=== PATIENT | male | born 1970 | race Caucasian/White ===

== ENCOUNTER 2018-05-24 21:14 | Emergency (ER) | payer SELFPAY ==
[~2018-05-24] VITALS: Ht 188 cm; Wt 104.3 kg
--- NOTE | 2018-05-24 21:40 | ED Integumentary General ---
General Stated Complaint: SORE ON LEFT ARM Source: patient Exam Limitations: no limitations History of Present Illness Date Seen by Provider: May 24, 2018 Time Seen by Provider: 21:38 Initial Comments To ER with reports of a painful bump to the outer upper left arm. he's had a tender lump year for many years, about 3 days ago it became red and painful. He was seen at [facility] and was given a prescription for Bactrim. Despite that the redness and size of this area has become larger. No fevers or chills Timing/Duration: getting worse Severity: moderate Location: extremities Possible Cause: no cause identified Associated Symptoms: denies symptoms Allergies and Home Medications Allergies Coded Allergies: No Known Drug Allergies (Unverified , 05/24/18) Patient Home Medication List Home Medication List Reviewed: Yes Review of Systems Review of Systems Constitutional: see HPI; No chills, No fever EENTM: see HPI Respiratory: no symptoms reported Cardiovascular: no symptoms reported Genitourinary: no symptoms reported Musculoskeletal: no symptoms reported Skin: see HPI Psychiatric/Neurological: No Symptoms Reported Endocrine: No Symptoms Reported Past Bmelwcv-Xiulim-Qdrxtd Hx Patient Social History Recent Foreign Travel: No Contact w/Someone Who Travel: No Physical Exam Vital Signs Vital Signs - First Documented 05/24/18 21:28 Temp 98.0 Pulse 85 Resp 16 B/P (MAP) 161/92 (115) Capillary Refill : General Appearance: WD/WN, no apparent distress Respiratory: no respiratory distress, no accessory muscle use Neurologic/Psychiatric: alert, normal mood/affect, oriented x 3 Skin: normal color, warm/dry Skin Problem Location: upper extremities Skin Problem Character: abscess, other (there is a 3 cm erythematous tender lesion to the left upper outer arm which is fluctuant in the center) Procedures/Interventions I&D : Blade Size: 11 Packing/Drain: Idoform 03/19 Progress Overlying skin was anesthetized with 1 mL of 2% lidocaine without epinephrine. Incision made with 11 blade scalpel. Large amount of occurred like sebaceous material expressed, foul-smelling. Cultures collected and sent to lab. Cavity was flushed with hydrogen peroxide, packed with about 1 foot of quarter inch iodoform. Progress/Results/Core Measures Results/Orders My Orders Orders - CHERIE NASSAR APRN Lidocaine 1% Inj 20 Ml (Xylocaine 1% Inj (05/24/18 21:45) Wound Culture (05/24/18 21:36) Rx-Hydrocodone/Apap 5-325 Mg (Rx-Vicodin (05/24/18 21:45) Medications Given in ED Current Medications Medications Dose Ordered Sig/Vibha Route Start Time Stop Time Status Last Admin Dose Admin Acetaminophen/ Hydrocodone Bitart 1 ea Q4H PRN PO 05/24/18 21:45 05/24/18 21:41 1 EA Lidocaine HCl 1 ml ONCE ONCE INJ 05/24/18 21:45 05/24/18 21:46 DC 05/24/18 21:41 1 ML Vital Signs/I&O 05/24/18 21:28 Temp 98.0 Pulse 85 Resp 16 B/P (MAP) 161/92 (115) Departure Impression Primary Impression: Inflamed sebaceous cyst Disposition: HOME, SELF-CARE Condition: Stable Departure-Patient Inst. Decision time for Depature: 21:39 Referrals: NO,LOCAL PHYSICIAN (PCP) Primary Care Physician DON MARY DO RENAY MCFARLANE DO Patient Instructions: SEBACEOUS CYST-I&D Add. Discharge Instructions: 1. You may shower allowing water run over this 2. Continue the Bactrim antibiotic 3. Return to ER for any concerns 4. Follow-up with a surgeon to see if excision of this sebaceous cyst sac is warranted. Work/School Note: Work Release Form Date Seen in the Emergency Department: May 24, 2018 Return to Work: May 26, 2018 CHERIE NASSAR APRN May 24, 2018 21:40
[2018-05-24] MEDS ORDERED: RX-HYDROCODONE/APAP 5/325 MG #4 TAB PK PO PRN (21:45)
[2018-05-24] MEDS ORDERED: LIDOCAINE 1% INJ 20 ML 20 ML VIAL INJ ONE (21:45)
--- NOTE | 2018-05-24 21:58 | NUR ---
CULTURE OF LEFT ARM ABSCESS PER HUGO UMANZOR.
[2018-05-24 22:18] VITALS: BP 157/89
== END 2018-05-24 22:20 | disposition home or self-care (01) ==
LOC: ER 21:16
DX: L72.3 Sebaceous cyst (principal)
CPT/HCPCS: 87070; 87205

== ENCOUNTER 2018-05-26 18:44 | Emergency (ER) | payer SELFPAY ==
[~2018-05-26] VITALS: Ht 188 cm; Wt 104.3 kg
--- NOTE | 2018-05-26 19:54 | ED Suture Removal/Wound Check ---
Suture/Wound Re-check General Appearance: WD/WN, no apparent distress Neuro/Tendon: normal sensation, normal motor functions, responds to pain Skin Exam: normal color, warm/dry, other (There is a 3-4 mm round skin incision on the left upper extremity that is packed with iodoform tape. No purulent discharge.) Comments Replace the iodoform gauze after flushing with 100 cc of sterile saline. About half as much gauze back in. Physical Exam Vital Signs Vital Signs - First Documented 05/26/18 19:06 Pulse 89 Resp 16 B/P (MAP) 167/96 Pulse Ox 96 Capillary Refill : General Appearance: WD/WN, no apparent distress Neck: full range of motion, supple Skin: other (Small surgical wound in 3-4 mm diameter on the posterior lateral overlying the triceps upper extremity. Has iodoform gauze and no purulence.) Departure Impression Primary Impression: Abscess Additional Impression: Encounter for wound re-check Disposition: 01 HOME, SELF-CARE Condition: Stable Departure-Patient Inst. Decision time for Depature: 19:53 Referrals: NO,LOCAL PHYSICIAN (PCP/Family) Primary Care Physician Patient Instructions: Wound Incision and Drainage (DC) Add. Discharge Instructions: Keep the wound clean with regular soap and water. Remove the tape and about 1-2 days. Change clean and dry gauze dressing at least daily or as it becomes soiled. Tylenol and/or ibuprofen For pain. Hot compresses can be helpful. Continue to take the antibiotics. If it becomes reinfected, swollen or you start to have fevers or other worrisome symptoms return to the ER. All discharge instructions reviewed with patient and/or family. Voiced understanding. JUAN R SERRA May 26, 2018 19:54
[2018-05-26 20:04] VITALS: BP 167/96
== END 2018-05-26 20:04 | disposition home or self-care (01) ==
LOC: EDUNIT# 18:44 → ER 18:45
DX: L02.414 Cutaneous abscess of left upper limb (principal)
CPT/HCPCS: 99282

== ENCOUNTER 2018-09-26 18:54 | Emergency (ER) | payer OTHER ==
[~2018-09-26] VITALS: Ht 188 cm; Wt 99.8 kg
--- NOTE | 2018-09-26 19:07 | ED Dyspnea ---
General Stated Complaint: SOA Source of Information: Patient, Family Exam Limitations: No Limitations History of Present Illness Date Seen by Provider: Sep 26, 2018 Time Seen by Provider: 19:04 Initial Comments To ER per private vehicle from home with reports of dyspnea. This is been ongoing for about 3 months. Significantly worse than usual to the point that he felt he should come to the emergency room beginning today. No cough. No fevers or chills. 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 He has been seen by his primary care provider Dr. Hilton for this and there is suspicion of emphysema, has CT chest and palmar function test scheduled. He did have a pulmonary infection as a child at the age of 21 treated at [facility] and states "they told me I had the lungs of a 72-year-old". He denies any cough. Denies any swelling in his feet. Denies chest pain. States that he is anxious about this but otherwise is not an anxious person. also states that he urinates quite frequently and would like his prostate checked. Patient states this is because he drinks so much water trying to stay hydrated. Timing/Duration: 1 Week Severity: Moderate Activities at Onset: None Prior Episodes/Possible Cause: No Prior Episodes Allergies and Home Medications Allergies Coded Allergies: No Known Drug Allergies (Unverified , 05/24/18) Home Medications Albuterol Sulfate 1 Puff Puff, 2 PUFF IH Q4H PRN for SHORTNESS OF BREATH 1 PUFF = 90 MCG Prescribed by: CHERIE NASSAR on 09/26/18 2100 Patient Home Medication List Home Medication List Reviewed: Yes Review of Systems Review of Systems Constitutional: see HPI; No chills, No fever EENTM: see HPI Respiratory: see HPI; No cough, No hemoptysis, No orthopnea; short of breath Cardiovascular: see HPI; No chest pain Genitourinary: no symptoms reported Musculoskeletal: no symptoms reported Skin: no symptoms reported Psychiatric/Neurological: No Symptoms Reported Endocrine: No Symptoms Reported Past Huslvun-Wbpkif-Jzylnl Hx Patient Social History Type Used: Cigarettes Recent Foreign Travel: No Contact w/Someone Who Travel: No Recent Hopitalizations: No Seasonal Allergies Seasonal Allergies: No Past Medical History 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 oz. 104.821163mf; 28.12 BMI Method:Stated General Appearance: No Apparent Distress, WD/WN, Anxious, Other (no distress. Speaks in full sentences. He is tachypneic on arrival but on auscultation he has good air movement without wheezing and oxygen saturation is 100%. Offered him something for anxiety but he declined.) Neck: Full Range of Motion, Normal Inspection Respiratory: Lungs Clear, Normal Breath Sounds, No Accessory Muscle Use, No Respiratory Distress Cardiovascular: Regular Rate, Rhythm, Normal Peripheral Pulses Gastrointestinal: Normal Bowel Sounds, Non Tender, Soft Extremity: Normal Capillary Refill, No Pedal Edema Neurologic/Psychiatric: Alert, Oriented x3 Skin: Normal Color, Warm/Dry Progress/Results/Core Measures Results/Orders Lab Results Laboratory Tests Test 09/26/18 19:00 09/26/18 19:08 Range/Units White Blood Count 8.9 4.3-11.0 10^3/uL Red Blood Count 5.30 4.35-5.85 10^6/uL Hemoglobin 15.5 13.3-17.7 G/DL Hematocrit 46 40-54 % Mean Corpuscular Volume 86 80-99 FL Mean Corpuscular Hemoglobin 29 25-34 PG Mean Corpuscular Hemoglobin Concent 34 32-36 G/DL Red Cell Distribution Width 13.4 10.0-14.5 % Platelet Count 250 130-400 10^3/uL Mean Platelet Volume 9.8 7.4-10.4 FL Neutrophils (%) (Auto) 60 42-75 % Lymphocytes (%) (Auto) 27 12-44 % Monocytes (%) (Auto) 12 0-12 % Eosinophils (%) (Auto) 2 0-10 % Basophils (%) (Auto) 0 0-10 % Neutrophils # (Auto) 5.3 1.8-7.8 X 10^3 Lymphocytes # (Auto) 2.4 1.0-4.0 X 10^3 Monocytes # (Auto) 1.0 0.0-1.0 X 10^3 Eosinophils # (Auto) 0.2 0.0-0.3 10^3/uL Basophils # (Auto) 0.0 0.0-0.1 10^3/uL D-Dimer < 0.27 0.00-0.49 UG/ML Sodium Level 142 135-145 MMOL/L Potassium Level 3.6 3.6-5.0 MMOL/L Chloride Level 97 L 98-107 MMOL/L Carbon Dioxide Level 25 21-32 MMOL/L Anion Gap 20 H 5-14 MMOL/L Blood Urea Nitrogen 8 7-18 MG/DL Creatinine 0.79 0.60-1.30 MG/DL Estimat Glomerular Filtration Rate > 60 BUN/Creatinine Ratio 10 Glucose Level 81 70-105 MG/DL Calcium Level 8.0 L 8.5-10.1 MG/DL Corrected Calcium 7.8 L 8.5-10.1 MG/DL Magnesium Level 2.6 H 1.8-2.4 MG/DL Total Bilirubin 0.4 0.1-1.0 MG/DL Aspartate Amino Transf (AST/SGOT) 19 5-34 U/L Alanine Aminotransferase (ALT/SGPT) 23 0-55 U/L Alkaline Phosphatase 58 40-136 U/L Troponin I < 0.028 <0.028 NG/ML B-Type Natriuretic Peptide < 10.0 <100.0 PG/ML Total Protein 6.7 6.4-8.2 GM/DL Albumin 4.3 3.2-4.5 GM/DL Urine Color YELLOW Urine Clarity CLEAR Urine pH 6 5-9 Urine Specific Garita 1.010 L 1.016-1.022 Urine Protein NEGATIVE NEGATIVE Urine Glucose (UA) NEGATIVE NEGATIVE Urine Ketones NEGATIVE NEGATIVE Urine Nitrite NEGATIVE NEGATIVE Urine Bilirubin NEGATIVE NEGATIVE Urine Urobilinogen NORMAL NORMAL MG/DL Urine Leukocyte Esterase NEGATIVE NEGATIVE Urine RBC (Auto) NEGATIVE NEGATIVE Urine RBC NONE /HPF Urine WBC NONE /HPF Urine Squamous Epithelial Cells RARE /HPF Urine Crystals NONE /LPF Urine Bacteria NEGATIVE /HPF Urine Casts NONE /LPF Urine Mucus NEGATIVE /LPF Urine Culture Indicated NO My Orders Orders - CHERIE NASSAR APRN Cbc With Automated Diff (09/26/18 19:02) Comprehensive Metabolic Panel (09/26/18 19:02) BNP (7/14/19 19:02) Troponin I (09/26/18 19:02) Fibrin Degradation Products (09/26/18 19:02) Ekg Tracing (09/26/18 19:02) Magnesium (09/26/18 19:02) Psa Screen (09/26/18 19:02) Ed Iv/Invasive Line Start (09/26/18 19:02) Chest 1 View, Ap/Pa Only (09/26/18 19:02) Ua Culture If Indicated (09/26/18 19:02) Ct Chest W (09/26/18 19:25) Alprazolam Tablet (Xanax Tablet) (09/26/18 19:30) Iohexol Injection (Omnipaque 350 Mg/Ml 1 (09/26/18 19:45) Received Contrast (Hold Metformin- Contr (09/26/18 19:45) Ns (Ivpb) (Sodium Chloride 0.9% Ivpb Bag (09/26/18 19:45) Magnesium 1 Gm/100 Ml Ivpb (Magnesium Summers (09/26/18 19:45) Albuterol/Ipra Inhalation Soln (Duoneb I (09/26/18 20:30) Svn Small Volume Nebulizer (09/26/18 20:21) Ns Iv 500 Ml (Sodium Chloride 0.9%) (09/26/18 21:00) Medications Given in ED Current Medications Medications Dose Ordered Sig/Vibha Route Start Time Stop Time Status Last Admin Dose Admin Albuterol/ Ipratropium 3 ml ONCE ONCE INH 09/26/18 20:30 09/26/18 20:31 DC 09/26/18 20:44 3 ML Alprazolam 0.5 mg ONCE ONCE PO 09/26/18 19:30 09/26/18 19:31 DC 09/26/18 19:38 0.5 MG Iohexol 75 ml ONCE ONCE IV 09/26/18 19:45 09/26/18 19:46 DC 09/26/18 19:53 75 ML Sodium Chloride 100 ml ONCE ONCE IV 09/26/18 19:45 09/26/18 19:46 DC 09/26/18 19:53 80 ML Vital Signs/I&O 09/26/18 18:56 Temp 97.6 Pulse 81 Resp 18 B/P (MAP) 169/111 (130) Pulse Ox 99 O2 Delivery Room Air Diagnostic Imaging Diagonstic Imaging: Xray Plain Films/CT/US/NM/MRI: chest Comments NAME: NEIL LEMUS [facility] REC#: [id number] PT STATUS: REG ER : 1970 PHYSICIAN: CHERIE NASSAR APRN ADMIT DATE: 09/26/18/ER Draft Date of Exam:09/26/18 CT CHEST W INDICATION: Intermittent, shortness of air for approximately 3 weeks. Increased difficulty breathing this morning. Fever, chills and cough. EXAMINATION: CT chest with contrast, 09/26/2018. COMPARISON: None. FINDINGS: Mediastinal structures are unremarkable. No adenopathy. Major vessels are grossly unremarkable on this non-CTA examination. No pericardial or pleural effusions are seen. There is diffuse emphysematous change throughout the lungs, especially towards the upper lobes. Linear atelectasis is seen at the left lung base. No mass is appreciated. The visualized upper abdominal structure demonstrates atherosclerotic disease with evidence of previous cholecystectomy and fatty infiltration throughout the liver. The osseous structures are unremarkable for an acute process. IMPRESSION: 1. No acute process within the chest with diffuse emphysematous changes noted. Other incidental findings as above. 2. Not mentioned in the body of the report, there is a rounded subcutaneous lesion in the anterior chest just to the left of midline which measures 18 mm in size. It appears subcutaneous and is well-circumscribed. Hounsfield units consistent with fluid and fat possibly a sebaceous cyst or other benign lesion but clinical followup is recommended. Dictated on workstation # [id number] Dict: 09/26/182014 Trans: 09/26/182038 [facility] [id number] Interpreted by: POLA RYAN MD Electronically signed by: Departure Communication (Admissions) 2042-Spoke with Dr. Jaime, we'll admit observation status, replace magnesium and sodium, fluid restriction overnight. Recheck in the morning. 2054-notify Dr. Jaime of labs being different than initially reported. We will discharge the patient home for outpatient follow-up with pulmonology. Family Conversation 2051-discussed with the lab regarding the low magnesium. They have rerun this on a different machine. Initially was reported as 0.7. They reran aside different machine and is now 2.1. I requested they rerun the sodium is well and it's now in the 140s. It was initially reported as 126. NAME: NEIL LEMUS [facility] REC#: [id number] PT STATUS: REG ER : 1970 PHYSICIAN: CHERIE NASSAR [employer] ADMIT DATE: 09/26/18/ER Draft Date of Exam:09/26/18 CT CHEST W INDICATION: Intermittent, shortness of air for approximately 3 weeks. Increased difficulty breathing this morning. Fever, chills and cough. EXAMINATION: CT chest with contrast, 09/26/2018. COMPARISON: None. FINDINGS: Mediastinal structures are unremarkable. No adenopathy. Major vessels are grossly unremarkable on this non-CTA examination. No pericardial or pleural effusions are seen. There is diffuse emphysematous change throughout the lungs, especially towards the upper lobes. Linear atelectasis is seen at the left lung base. No mass is appreciated. The visualized upper abdominal structure demonstrates atherosclerotic disease with evidence of previous cholecystectomy and fatty infiltration throughout the liver. The osseous structures are unremarkable for an acute process. IMPRESSION: 1. No acute process within the chest with diffuse emphysematous changes noted. Other incidental findings as above. 2. Not mentioned in the body of the report, there is a rounded subcutaneous lesion in the anterior chest just to the left of midline which measures 18 mm in size. It appears subcutaneous and is well-circumscribed. Hounsfield units consistent with fluid and fat possibly a sebaceous cyst or other benign lesion but clinical followup is recommended. Dictated on workstation # [id number] Dict: 09/26/182014 Trans: 09/26/182038 [facility] [phone] Interpreted by: POLA RYAN MD Electronically signed by: Impression Primary Impression: Dyspnea Qualified Codes: R06.00 - Dyspnea, unspecified Additional Impression: Emphysema of lung Qualified Codes: J43.9 - Emphysema, unspecified Disposition: 01 HOME, SELF-CARE Condition: Stable Departure-Patient Inst. Decision time for Depature: 20:58 Referrals: ABUNDIO LYNN JOHN M MD (PCP/Family) Primary Care Physician Patient Instructions: COPD Including Emphysema (DC) Add. Discharge Instructions: I have faxed your records to Dr. Hilton. Follow-up with him and the football scout Dr. Lynn. Return to the emergency room for any concerns. Your electrolytes are normal and you do not need to restrict your fluids. Scripts Albuterol Sulfate (PROAIR HFA) 1 Puff Puff 2 PUFF IH Q4H PRN for SHORTNESS OF BREATH, #1 PUFF 1 PUFF = 90 MCG Prov: CHERIE NASSAR APRN 09/26/18 Copy Copies To 1: ODILIA HILTON MD, PETER J APRN Sep 26, 2018 19:07
[2018-09-26 19:10] LABS: BASOPHILS % (AUTO) 0 % (0-10); EOSINOPHILS # (AUTO) 0.2 10^3/uL (0.0-0.3); EOSINOPHILS % (AUTO) 2 % (0-10); HEMATOCRIT 46 % (40-54); HEMOGLOBIN 15.5 G/DL (13.3-17.7); LYMPHOCYTES # (AUTO) 2.4 X 10^3 (1.0-4.0); LYMPHOCYTES % (AUTO) 27 % (12-44); MEAN CORPUSCULAR HEMOGLOBIN 29 PG (25-34); MEAN CORPUSCULAR HGB CONC 34 G/DL (32-36); MEAN CORPUSCULAR VOLUME 86 FL (80-99); MEAN PLATELET VOLUME 9.8 FL (7.4-10.4); MONOCYTES % (AUTO) 12 % (0-12); NEUTROPHILS # (AUTO) 5.3 X 10^3 (1.8-7.8); NEUTROPHILS % (AUTO) 60 % (42-75); PLATELET COUNT 250 10^3/uL (130-400); RED CELL DISTRIBUTION WIDTH 13.4 % (10.0-14.5); WHITE BLOOD COUNT 8.9 10^3/uL (4.3-11.0)
[2018-09-26 19:12] LABS: BILIRUBIN,URINE NEGATIVE (NEGATIVE); CLARITY,URINE CLEAR; COLOR,URINE YELLOW; GLUCOSE, URINE (UA) NEGATIVE (NEGATIVE); KETONES,URINE NEGATIVE (NEGATIVE); LEUKOCYTE ESTERASE ,URINE NEGATIVE (NEGATIVE); NITRITE,URINE NEGATIVE (NEGATIVE); PH,URINE 6 (5-9); PROTEIN,URINE NEGATIVE (NEGATIVE); UROBILINOGEN,URINE NORMAL (NORMAL)
[2018-09-26 19:19] LABS: BACTERIA,URINE NEGATIVE /HPF; SQUAMOUS EPITHELIAL CELL,UR RARE /HPF
[2018-09-26 19:28] LABS: CARBON DIOXIDE 25 MMOL/L (21-32)
[2018-09-26] MEDS ORDERED: ALPRAZolam 0.25 MG (XANAX) TAB PO ONE (19:30)
--- NOTE | 2018-09-26 19:31 | Diagnostic Imaging Report ---
INDICATION: Short of air. Worsening overall over the last several days. EXAMINATION: Chest dated 09/26/2018 FINDINGS: Mild prominence of the perihilar regions noted perhaps due to mild pulmonary vascular congestion. Mild adjacent bibasilar atelectasis. No infiltrates. No effusions or pneumothorax. IMPRESSION: 1. Possible mild pulmonary vascular congestion 2. Right base atelectasis. Dictated by: Dictated on workstation # [id number]
[2018-09-26] MEDS ORDERED: IOHEXOL 350 MG/ML 100 ML (OMNIPAQUE 350) VIAL IV ONE (19:45)
[2018-09-26] MEDS ORDERED: NS 100 ML (IVPB) BAG IV ONE (19:45)
[2018-09-26] MEDS ORDERED: HOLD METFORMIN - RECEIVED CONTRAST 20 ML VIAL IV SCH (19:45)
[2018-09-26] MEDS: MAGNESIUM 1 GM/100 ML IVPB 100 ML IV SCH ×2 (20:10→20:50)
[2018-09-26] MEDS ORDERED: RT-ALBUTEROL/IPRATROPIUM 3 ML (DUONEB) VIAL INH ONE (20:30)
--- NOTE | 2018-09-26 20:39 | Diagnostic Imaging Report ---
INDICATION: Intermittent, shortness of air for approximately 3 weeks. Increased difficulty breathing this morning. Fever, chills and cough. EXAMINATION: CT chest with contrast, 09/26/2018. COMPARISON: None. FINDINGS: Mediastinal structures are unremarkable. No adenopathy. Major vessels are grossly unremarkable on this non-CTA examination. No pericardial or pleural effusions are seen. There is diffuse emphysematous change throughout the lungs, especially towards the upper lobes. Linear atelectasis is seen at the left lung base. No mass is appreciated. The visualized upper abdominal structure demonstrates atherosclerotic disease with evidence of previous cholecystectomy and fatty infiltration throughout the liver. The osseous structures are unremarkable for an acute process. IMPRESSION: 1. No acute process within the chest with diffuse emphysematous changes noted. Other incidental findings as above. 2. Not mentioned in the body of the report, there is a rounded subcutaneous lesion in the anterior chest just to the left of midline which measures 18 mm in size. It appears subcutaneous and is well-circumscribed. Hounsfield units consistent with fluid and fat possibly a sebaceous cyst or other benign lesion but clinical followup is recommended. Dictated by: Dictated on workstation # [id number]
[2018-09-26 20:53] LABS: MAGNESIUM 2.6 MG/DL (1.8-2.4)
[2018-09-26] MEDS ORDERED: RT-ALBUINH IH (21:00)
[2018-09-26] MEDS ORDERED: NS IV 500 ML 500 ML IV SCH (21:00)
[2018-09-26 21:08] LABS: SODIUM 142 MMOL/L (135-145)
[2018-09-26 21:34] VITALS: BP 140/93
[2018-09-26 21:37] LABS: CHLORIDE 104 MMOL/L (98-107)
[2018-09-26 21:38] LABS: BILIRUBIN,TOTAL 0.5 MG/DL (0.1-1.0); BUN/CREATININE RATIO 9; CALCIUM 10.3 MG/DL (8.5-10.1); CREATININE SERUM 1.16 MG/DL (0.60-1.30); GFR ESTIMATED > 60; GLUCOSE 87 MG/DL (70-105)
[2018-09-26 21:39] LABS: ALANINE AMINOTRANSFERASE 26 U/L (0-55); ALBUMIN 4.6 GM/DL (3.2-4.5); ALKALINE PHOSPHATASE 66 U/L (40-136); TOTAL PROTEIN 7.6 GM/DL (6.4-8.2)
== END 2018-09-26 21:34 | disposition home or self-care (01) ==
LOC: EDUNIT# 18:54 → ER 18:55
DX: J43.9 Emphysema, unspecified (principal); Z90.49 Acquired absence of other specified parts of digestive tract
CPT/HCPCS: 36415; 71045; 71260; 80053; 81000; 83735; 83880; 84153; 84484; 85025; 85379; 93005; 96360

== ENCOUNTER → 2018-10-29 | Outpatient (CLI) | payer OTHER ==
[~2018-10-29] MED LIST: RT-ALBUINH IH; RT-ALBUTEROL SULF 2.5 MG/3 ML PRE-MIX VIAL INH ONE; RT-ALBUTEROL SULF 2.5 MG/3 ML PRE-MIX VIAL ONE
== END ==
LOC: RT 08:01
PROVIDERS: ATTEND Pediatrics
DX: R06.02 Shortness of breath (principal)
CPT/HCPCS: 94060; 94726; 94729

== ENCOUNTER 2019-03-23 10:04 | Outpatient (RCR) | payer OTHER | END 2019-03-23 11:18 | disposition home or self-care (01) | PROVIDERS: ATTEND Surgery | DX: Z02.71 Encounter for disability determination (principal); J43.9 Emphysema, unspecified; M54.9 Dorsalgia, unspecified; F32.9 Major depressive disorder, single episode, unspecified; Z87.891 Personal history of nicotine dependence ==

== ENCOUNTER → 2019-03-23 | Outpatient (CLI) | payer OTHER ==
[~2019-03-23] MED LIST changes: -RT-ALBUTEROL SULF 2.5 MG/3 ML PRE-MIX VIAL INH ONE; -RT-ALBUTEROL SULF 2.5 MG/3 ML PRE-MIX VIAL ONE
--- NOTE | 2019-03-23 11:53 | Diagnostic Imaging Report ---
INDICATION: Back pain. TIME OF EXAM: 11:28 a.m. COMPARISON: No prior studies are available for comparison. FINDINGS: Curvature and alignment are normal. Vertebral body heights are well maintained. There is degenerative disc disease with mild disc space narrowing and anterior osteophyte formation at the T12-L1 level. Lumbar discs show fairly normal heights. No fractures or subluxation is seen. There are some atherosclerotic calcifications in the abdominal aorta. IMPRESSION: T12-L1 degenerative disc disease. No acute bony abnormality is detected. Dictated by: Dictated on workstation # [id number]
== END ==
LOC: RAD 11:05
PROVIDERS: ATTEND Surgery
DX: Z02.71 Encounter for disability determination (principal); M51.35 Other intervertebral disc degeneration, thoracolumbar region
CPT/HCPCS: 72100

== ENCOUNTER → 2019-04-25 | Outpatient (CLI) | payer OTHER | LOC: RT 13:43 | PROVIDERS: ATTEND Family Medicine | DX: Z02.71 Encounter for disability determination (principal) | CPT/HCPCS: 94060 ==

== ENCOUNTER 2020-06-20 18:49 | Emergency (ER) | payer OTHER | END 2020-06-20 19:16 | disposition left against medical advice (07) | LOC: EDUNIT# 18:49 → ER 18:51 | DX: R06.02 Shortness of breath (principal) ==

== ENCOUNTER 2021-05-19 22:43 | Emergency (ER) | payer SELFPAY ==
[~2021-05-19] VITALS: Ht 188 cm; Wt 113.3 kg
[2021-05-19 22:50] VITALS: BP 149/88
--- NOTE | 2021-05-19 23:00 | ED Cough/URI ---
General Stated Complaint: DRAINAGE/COUGH Source: patient History of Present Illness Date Seen by Provider: May 19, 2021 Time Seen by Provider: 22:52 Initial Comments PT ARRIVES VIA POV FROM HOME C/O COUGH AND CONGESTION/NASAL DRAINAGE AND SINUS PRESSURE NO OTHER SYMPTOMS WAS TREATED FOR A SINUS INFECTION A COUPLE OF WEEKS AGO, SYMPTOMS HAVE NOT IMPROVED--TOOK AMOXIL--SEEN AT [facility] PT HAS FREQUENT SINUS INFECTIONS AND TAKES ZYRTEC AND FLONASE PT ALSO HAS COPD--USES INHALER AND/OR NEBULIZER PRN PT QUIT SMOKING IN 2019, BUT STILL SMOKES IN THE HOME SYMPTOMS ARE NO DIFFERENT ENMANUEL HAD A NEGATIVE HOME COVID-19 TEST TONDIPESH PT HAS HAD COVID-19 VACCINE X 2, NO BOOSTER, LAST ONE IN 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 PCP: [facility] Allergies and Home Medications Allergies Coded Allergies: No Known Drug Allergies (Unverified , 05/24/18) Patient Home Medication List Home Medication List Reviewed: Yes Albuterol Sulfate (Proair Hfa) 1 Puff Puff, 2 PUFF IH Q4H PRN for SHORTNESS OF BREATH Prescribed by: CHERIE NASSAR on 09/26/18 2100 Azelastine HCl (Azelastine HCl) 137 Mcg/0.137 Ml [place].pump, 137 MCG NS BID Prescribed by: MOISÉS USLLIVAN on 05/20/217 Cefuroxime Axetil (Cefuroxime) 500 Mg Tablet, 500 MG PO BID Prescribed by: MOISÉS SULLIVAN on 05/20/217 Methylprednisolone (Medrol) 4 Mg Tab.ds.pk, 4 MG PO UD Prescribed by: MOISÉS SULLIVAN on 05/20/217 Review of Systems Review of Systems Constitutional: no symptoms reported EENTM: see HPI, nose congestion; No throat pain Respiratory: cough; No short of breath Cardiovascular: no symptoms reported Gastrointestinal: no symptoms reported Genitourinary: no symptoms reported Musculoskeletal: no symptoms reported Skin: no symptoms reported Psychiatric/Neurological: No Symptoms Reported Hematologic/Lymphatic: No Symptoms Reported Immunological/Allergic: no symptoms reported Past Mrlvmcp-Trcucs-Xkqnki Hx Patient Social History Tobacco Use?: Yes Tobacco type used: Cigarettes Smoking Status: Former Smoker (1 PPD X 28 YEARS, QUIT 2019. STILL WITH SECOND HAND SMOKE) Seasonal Allergies Seasonal Allergies: No Past Medical History Surgeries: Yes (3 BRAIN TUMORS REMOVED CHILD) Appendectomy, Gallbladder Respiratory: Yes COPD Cardiac: No Neurological: No Genitourinary: No Gastrointestinal: No Musculoskeletal: No Endocrine: No HEENT: No Cancer: No Psychosocial: No Integumentary: Yes (STAPH ON LEFT LEG ) Blood Disorders: No Physical Exam Vital Signs - First Documented 05/19/21 22:50 Temp 36.9 Pulse 89 Resp 20 B/P (MAP) 149/88 (108) Pulse Ox 98 O2 Delivery Room Air Capillary Refill : Height: 6'2.00" Weight: 220lbs. oz. 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, no motor/sensory deficits, alert, normal mood/affect, oriented x 3 Skin: normal color, warm/dry Progress/Results/Core Measures Suspected Sepsis SIRS Temperature: Pulse: Respiratory Rate: Blood Pressure / Mean: Results/Orders Lab Results Laboratory Tests Test 05/19/21 22:55 Range/Units Influenza Type A (RT-PCR) Not Detected Not Detecte Influenza Type B (RT-PCR) Not Detected Not Detecte SARS-CoV-2 RNA (RT-PCR) Not Detected Not Detecte My Orders Orders - MOISÉS SULLIVAN DO Covid 19 Inhouse Test (05/19/21 22:53) Influenza A And B By Pcr (05/19/21 22:53) Isolation Central Supply Req (05/19/21 22:53) Vital Signs/I&O 05/19/21 22:50 Temp 36.9 Pulse 89 Resp 20 B/P (MAP) 149/88 (108) Pulse Ox 98 O2 Delivery Room Air Capillary Refill : Progress Note : Progress Note PLACED IN ISOLATION ROOM PPE WORN COVID AND FLU TESTING DONE Departure Impression Primary Impression: Upper respiratory infection Disposition: 01 HOME, SELF-CARE Condition: Stable Departure-Patient Inst. Decision time for Depature: 23:53 Referrals: NO,LOCAL PHYSICIAN (PCP/Family) Primary Care Physician Patient Instructions: Upper Respiratory Infection ED Add. Discharge Instructions: CONTINUE FLONASE AND ZYRTEC OVER THE COUNTER MUCINEX DM FOR COUGH AND CONGESTION HUMIDIFY THE AIR IN YOUR HOME USE YOUR INHALER OR NEBULIZER PRESCRIBED FOLLOW UP WITH [facility] IN 1 WEEK IF NO BETTER Scripts Azelastine HCl (Azelastine HCl) 137 Mcg/0.137 Ml [place].pump 137 MCG NS BID, #1 EA Prov: MOISÉS SULLIVAN DO 05/20/21 Methylprednisolone (Medrol) 4 Mg Tab.ds.pk 4 MG PO UD for 6 Days, #21 PKG PER DOSE PACK INSTRUCTIONS Prov: MOISSÉ SULLIVAN DO 05/20/21 Cefuroxime Axetil (Cefuroxime) 500 Mg Tablet 500 MG PO BID, #30 TAB Prov: MOISÉS SULLIVAN DO 05/20/21 MOISÉS SULLIVAN DO May 19, 2021 23:00
[2021-05-20] MEDS ORDERED: CEFU500T63 PO (00:08)
[2021-05-20] MEDS ORDERED: METH4TAB PO (00:08)
[2021-05-20] MEDS ORDERED: AZEL137S11 NS (00:08)
== END 2021-05-20 00:17 | disposition home or self-care (01) ==
LOC: EDUNIT# 22:43 → ER 22:45
DX: J06.9 Acute upper respiratory infection, unspecified (principal); Z20.822 Contact with and (suspected) exposure to COVID-19; Z87.891 Personal history of nicotine dependence
CPT/HCPCS: 87636; 99283

== ENCOUNTER 2022-04-11 02:25 | Emergency (ER) | payer OTHER ==
[~2022-04-11] VITALS: Ht 188 cm; Wt 108.9 kg
[~2022-04-11 02:25] MED LIST changes: +ALBU8.5H6 IH; +AZEL137S11 NS; +CEFU500T63 PO; +METH4TAB PO; -RT-ALBUINH IH
--- NOTE | 2022-04-11 02:47 | ED Cough/URI ---
General Chief Complaint: Cough/Cold/Flu Symptoms Stated Complaint: CONGESTION/COUGH/SOA Nursing Triage Note: PT AMB TO RM 9 W C/O COUGH, CONGESTION, AND SOA X4-5 DAYS. PT A&OX4, NO RESP DISTRESS NOTED. Source: patient, old records History of Present Illness Date Seen by Provider: Apr 11, 2022 Time Seen by Provider: 02:30 Initial Comments PT ARRIVES VIA POV FROM HOME C/O NON-PRODUCTIVE COUGH, CHEST CONGESTION AND SHORTNESS OF BREATH FOR 4-5 DAYS NO FEVER AT ANY TIME NO HEADACHE OR BODY ACHES NO GI SYMPTOMS--HAS BEEN EATING AND DRINKING NORMALLY NO CHEST PAIN NO SWELLING IN FEET OR ANKLES OR PAIN IN CALVES PT HAS COPD AND USED ALBUTEROL NEBULIZER FOR THE FIRST TIME AROUND MIDNIGHT AND IT HELPED ALOT WITH HIS COUGH AND SHORTNESS OF BREATH--STATES HE HAS NOT USED HIS ALBUTEROL "FOR AWHILE NOW" HE HAS NOT TAKEN ANY COUGH/COLD MEDICATIONS AT ANY TIME HE HAS BEEN TAKING "LEFTOVER" AMOXIL FOR THE LAST 4-5 DAYS SYMPTOMS ARE NO DIFFERENT ENMANUEL HAS NOT SOUGHT CARE UNTIL TONDIPESH--STATES HE DID NOT HAVE TO WORK TODAY, AND TOLD HIM TO GO TO [facility], BUT HE DIDN'T. PT STATES HE TESTED + FOR COVID 02/21/22--NO TREATMENT. STATES HIS SYMPTOMS HAD BEEN GOING ON FOR MORE THAN 5 DAYS BEFORE HE SOUGHT CARE. NO PRESCRIPTIONS OR TREATMENT. THOSE SYMPTOMS RESOLVED AND HE WAS FEELING FINE UNTIL THIS WEEK. 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 PT IS A FORMER SMOKER, QUIT IN 2019. HE CHEWS TOBACCO. PCP: [facility] Allergies and Home Medications Allergies Coded Allergies: No Known Drug Allergies (Unverified , 05/24/18) Patient Home Medication List Home Medication List Reviewed: Yes Albuterol Sulfate (Ventolin Hfa) 1 Puff Puff, 2 PUFF IH Q4H PRN for SHORTNESS OF BREATH Prescribed by: CHERIE NASSAR on 09/26/182099 Azelastine HCl (Azelastine HCl) 137 Mcg/0.137 Ml [place].pump, 137 MCG NS BID Prescribed by: MOISÉS SULLIVAN on 05/20/21 0008 Benzonatate (Tessalon Perles) 100 Mg Capsule, 200 MG PO TID Prescribed by: MOISÉS SULLIVAN on 1/27/23 0254 Cefuroxime Axetil (Cefuroxime) 500 Mg Tablet, 500 MG PO BID Prescribed by: MOISÉS SULLIVAN on 05/20/217 Doxycycline Hyclate (Doxycycline Hyclate) 100 Mg Tablet, 100 MG PO BID Prescribed by: MOISÉS SULLIVAN on 04/11/22 032 Guaifenesin/Dextromethorphan (Mucinex Dm ER 1,200-60 mg Tab) 1,200 Mg-60 Mg Tbmp.12hr, 1 EACH PO BID Prescribed by: MOISÉS SULLIVAN on 04/11/22253 Methylprednisolone (Medrol) 4 Mg Tab.ds.pk, 4 MG PO UD Prescribed by: MOISÉS SULLIVAN on 05/20/217 Methylprednisolone (Medrol) 4 Mg Tab.ds.pk, 4 MG PO UD Prescribed by: MOISÉS SULLIVAN on 04/11/22253 Review of Systems Review of Systems Constitutional: no symptoms reported; No chills, No diaphoresis, No dizziness, No fever EENTM: no symptoms reported; No nose congestion, No throat pain Respiratory: see HPI, cough; No orthopnea, No phlegm; short of breath; No wheezing Cardiovascular: no symptoms reported; No chest pain, No edema, No palpitations, No syncope Gastrointestinal: no symptoms reported Genitourinary: no symptoms reported Musculoskeletal: no symptoms reported Skin: no symptoms reported Psychiatric/Neurological: No Symptoms Reported Hematologic/Lymphatic: No Symptoms Reported Immunological/Allergic: no symptoms reported Past Twmbrfe-Hiulwg-Jlsuqy Hx Patient Social History Tobacco Use?: Yes Smoking Status: Former Smoker Smokeless Tobacco Frequency: Current Everyday User Use of E-Cig and/or Vaping dev: No Substance use?: No Alcohol Use?: Yes Alcohol Frequency: Rarely Immunizations Up To Date Influenza Vaccine Up-to-Date: No; Not Current First/Initial COVID19 Vaccinat: 11/03 Second COVID19 Vaccination Paco: 12/04 Third COVID19 Vaccination Date: NONE COVID19 Vaccine Can Cutter: RAINA X2 Seasonal Allergies Seasonal Allergies: No Past Medical History Surgery/Hospitalization HX: EMPHYSEMA, FORMER SMOKER X28 YRS QUIT IN 2019 Surgeries: Yes (3 BRAIN TUMORS REMOVED CHILD) Appendectomy, Gallbladder, Neurological Respiratory: Yes COPD Cardiac: No Neurological: Yes ("BRAIN TUMORS REMOVED CHILD") Genitourinary: No Gastrointestinal: No Musculoskeletal: No Endocrine: No HEENT: No Cancer: No Psychosocial: No Integumentary: Yes (STAPH ON LEFT LEG ) Blood Disorders: No Physical Exam Vital Signs - First Documented 04/11/22 02:28 Temp 36.7 Pulse 86 Resp 20 B/P (MAP) 155/79 (104) Pulse Ox 99 O2 Delivery Room Air Capillary Refill : Less Than 3 Seconds Height: 6'2.00" Weight: 220lbs. oz. 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, no motor/sensory deficits, alert, normal mood/affect, oriented x 3 Skin: normal color, warm/dry Progress/Results/Core Measures Suspected Sepsis SIRS Temperature: Pulse: 86 Respiratory Rate: 20 Blood Pressure 155 /79 Mean: 104 Results/Orders Lab Results Laboratory Tests Test 04/11/22 02:34 Range/Units Influenza Type A (RT-PCR) Not Detected Not Detecte Influenza Type B (RT-PCR) Not Detected Not Detecte SARS-CoV-2 RNA (RT-PCR) Not Detected Not Detecte My Orders Orders - MOISÉS SULLIVAN DO Covid 19 Inhouse Test (04/11/22 02:31) Influenza A And B By Pcr (04/11/22 02:31) Isolation Central Supply Req (04/11/22 02:31) Chest 1 View, Ap/Pa Only (04/11/22 02:32) Vital Signs/I&O 04/11/22 04/11/22 02:28 03:23 Temp 36.7 Pulse 86 90 Resp 20 20 B/P (MAP) 155/79 (104) 128/90 Pulse Ox 99 98 O2 Delivery Room Air Room Air Capillary Refill : Less Than 3 Seconds Blood Pressure Mean: 104 Progress Note : Progress Note PLACED IN ISOLATION ROOM FULL PPE WORN COVID AND FLU TESTING DONE O2 SAT 100% ON ROOM AIR OTHER VITALS STABLE NO FEVER NO COUGH OR DYSPNEA NOTED AT ANY TIME NO HYPOXIA AT ANY TIME NO SYMPTOMS OF ANY KIND DURING ER STAY REVIEWED PRIOR RECORDS, ALL ARE ER VISITS Diagnostic Imaging Comments CXR--NO ACUTE PROCESS, PENDING RADIOLOGIST REVIEW Reviewed: Reviewed by Me Departure Impression Primary Impression: Bronchitis Additional Impression: COPD (chronic obstructive pulmonary disease) Disposition: HOME, SELF-CARE Condition: Stable Departure-Patient Inst. Decision time for Depature: 03:22 Referrals: [facility] (PCP/Family) Primary Care Physician Patient Instructions: Acute Bronchitis, Adult (DC), Chronic Obstructive Pulmonary Disease (COPD) (DC) Add. Discharge Instructions: HOME, REST LOTS OF CLEAR LIQUIDS TYLENOL AND MOTRIN NEEDED FOR PAIN OR FEVER USE YOUR ALBUTEROL NEBULIZER EVERY 4 HOURS NEEDED FOLLOW UP WITH [facility] IN 3-4 DAYS IF NO BETTER, RETURN TO ER IF WORSE All discharge instructions reviewed with patient and/or family. Voiced understanding. Scripts Doxycycline Hyclate (Doxycycline Hyclate) 100 Mg Tablet 100 MG PO BID, #20 TAB 0 Refills Prov: MOISÉS SULLIVAN DO 04/11/22 Benzonatate (TESSALON PERLES) 100 Mg Capsule 200 MG PO TID, #50 CAP Prov: MOISÉS SULLIVAN DO 04/11/22 Guaifenesin/Dextromethorphan (Mucinex Dm ER 1,200-60 mg Tab) 1,200 Mg-60 Mg Tbmp.12hr 1 EACH PO BID, #20 EA Prov: MOISÉS SULLIVAN DO 04/11/22 Methylprednisolone (Medrol) 4 Mg Tab.ds.pk 4 MG PO UD for 6 Days, #21 PKG PER DOSE PACK INSTRUCTIONS Prov: MOISÉS SULLIVAN DO 04/11/22 MOISÉS SULLIVAN DO Apr 11, 2022 02:47
[2022-04-11] MEDS ORDERED: GUAI1TBM19 PO (02:54)
[2022-04-11] MEDS ORDERED: METH4TAB PO (02:54)
[2022-04-11] MEDS ORDERED: BENZ100C18 PO (02:54)
[2022-04-11] MEDS ORDERED: DOXY100T2 PO (03:22)
[2022-04-11 03:23] VITALS: BP 128/90
--- NOTE | 2022-04-11 04:58 | Diagnostic Imaging Report ---
Indication: Cough, congestion and shortness of breath x5 days Portable chest 2:34 AM Heart size and pulmonary vascularity are normal. Lungs are clear. There are no effusions or pneumothoraces. IMPRESSION: No acute abnormalities the chest Dictated by: Dictated on workstation # [id number]
== END 2022-04-11 03:23 | disposition home or self-care (01) ==
LOC: EDUNIT# 02:25 → ER 02:28
DX: J40 Bronchitis, not specified as acute or chronic (principal); J44.9 Chronic obstructive pulmonary disease, unspecified; F17.200 Nicotine dependence, unspecified, uncomplicated; Z86.16 Personal history of COVID-19; Z20.822 Contact with and (suspected) exposure to COVID-19
CPT/HCPCS: 71045; 87636

== ENCOUNTER 2022-06-20 20:55 | Emergency (ER) | payer OTHER ==
[~2022-06-20 20:55] MED LIST changes: +BENZ100C18 PO; +DOXY100T2 PO; +GUAI1TBM19 PO
[2022-06-20] MEDS ORDERED: KETOROLAC 60 MG/2 ML VIAL IM STA (21:25)
[2022-06-20] MEDS ORDERED: ORPHENADRINE 60 MG/2 ML (NORFLEX) AMP (ED ONLY) IM STA (21:25)
--- NOTE | 2022-06-20 21:26 | ED Back Pain ---
General Chief Complaint: Back Problems Stated Complaint: LOWER BACK PAIN Nursing Triage Note: PT AMB TO RM 6 WITH C/O BACK PAIN AND SWELLING ON THE L SIDE OF SPINE THIS WEEK. PT DENIES ANY TROUBLE URINATING OR HAVING ANY BOWEL MOVEMENTS. PT DENIES INJURY Source of Information: Patient Exam Limitations: No Limitations History of Present Illness Date Seen by Provider: Jun 20, 2022 Time Seen by Provider: 19:08 Initial Comments Here with complaint of lower back pain especially on the left over the last several days. Does have history of disc problems and had a severe spasm event few years ago that he is trying to avoid this time. He has not seen a back surgeon yet. Denies difficulty with urination or bowel movements. Denies numbness between his legs, recent injury or fever. States its worse on the left than the right and does feel a knot on the left lateral to L1 and L2. Denies abdominal pain, nausea or vomiting. Does have history of hypertension but has not taken his blood pressure medicine yet. Denies chest pain or weakness. Did take 1 tablet of Aleve at noon today and that has not really helped out his pain. He did try to go fishing this afternoon and noted that pain was a little worse and so ended up coming here due to concerns. Location: Lumbar Spine, Paraspinous Muscles Timing/Duration: 3-4 Days Severity: Moderate Pain/Injury Location: Back Radiation: Buttocks Method of Injury: Unknown Modifying Factors: Worse With Movement; Improves With Rest Associated Symptoms: muscle spasms; No fever, No weakness, No numbness in legs/feet, No tingling in legs/feet, No sensory/motor loss; lower back pain; No loss of bladder control, No loss of bowel control Allergies and Home Medications Allergies Coded Allergies: No Known Drug Allergies (Unverified , 05/24/18) Patient Home Medication List Home Medication List Reviewed: Yes Albuterol Sulfate (Ventolin Hfa) 1 Puff Puff, 2 PUFF IH Q4H PRN for SHORTNESS OF BREATH Prescribed by: CHERIE NASSAR on 09/26/182099 Azelastine HCl (Azelastine HCl) 137 Mcg/0.137 Ml [place].pump, 137 MCG NS BID Prescribed by: MOISÉS SULLIVAN on 05/20/21 0008 Benzonatate (Tessalon Perles) 100 Mg Capsule, 200 MG PO TID Prescribed by: MOISÉS SULLIVAN on 04/11/22253 Cefuroxime Axetil (Cefuroxime) 500 Mg Tablet, 500 MG PO BID Prescribed by: MOISÉS SULLIVAN on 05/20/217 Doxycycline Hyclate (Doxycycline Hyclate) 100 Mg Tablet, 100 MG PO BID Prescribed by: MOISÉS SULLIVAN on 04/11/22 032 Guaifenesin/Dextromethorphan (Mucinex Dm ER 1,200-60 mg Tab) 1,200 Mg-60 Mg Tbmp.12hr, 1 EACH PO BID Prescribed by: MOISÉS SULLIVAN on 04/11/22253 Methylprednisolone (Medrol) 4 Mg Tab.ds.pk, 4 MG PO UD Prescribed by: MOISÉS SULLIVAN on 05/20/217 Methylprednisolone (Medrol) 4 Mg Tab.ds.pk, 4 MG PO UD Prescribed by: MOISÉS SULLIVAN on 04/11/22253 Review of Systems Constitutional: see HPI; No chills, No fever Respiratory: no symptoms reported Cardiovascular: see HPI Gastrointestinal: see HPI; No nausea, No vomiting Genitourinary: no symptoms reported Musculoskeletal: see HPI Psychiatric/Neurological: See HPI Past Euoeikk-Lgibyl-Lsedgc Hx Patient Social History Tobacco Use?: No Smoking Status: Former Smoker Substance use?: No Pt feels they are or have been: No Immunizations Up To Date First/Initial COVID19 Vaccinat: 11/03 Second COVID19 Vaccination Paco: 12/04 Third COVID19 Vaccination Date: NONE Seasonal Allergies Seasonal Allergies: No Past Medical History Surgery/Hospitalization HX: EMPHYSEMA, FORMER SMOKER X28 YRS QUIT IN 2019, 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 oz. 99.520214yn; 30.00 BMI Method:Stated General Appearance: No Apparent Distress, WD/WN Cardiovascular: Regular Rate, Rhythm, No Murmur Respiratory: Lungs Clear, Normal Breath Sounds Gastrointestinal: Normal Bowel Sounds, No Pulsatile Mass, Non Tender, Soft Back: Decreased Range of Motion (Pain limited), Muscle Spasm (Left lateral lateral to L1-L2); No Vertebral Tenderness Extremity: Normal Range of Motion, Non Tender, No Calf Tenderness Neurologic/Psychiatric: Alert, Oriented x3, No Motor/Sensory Deficits, Other (Equal strength bilateral feet. Retains normal sensation between the legs.) Skin: Normal Color, Warm/Dry Progress/Results/Core Measures Results/Orders My Orders Orders - FADIA LANDIS MD Prednisone Tablet (Deltasone Tablet) (06/20/22 21:30) Ketorolac Injection (Toradol Injection) (06/20/22 21:25) Orphenadrine Inj (Ed Only) (Norflex Inje (06/20/22 21:25) Amlodipine Tablet (Norvasc Tablet) (06/20/22 21:30) Vital Signs/I&O 06/20/22 21:02 Temp 36.0 Pulse 71 Resp 18 B/P (MAP) 187/114 (138) Blood Pressure Mean: 138 Progress Progress Note : Progress Note Seen and evaluated. Norflex 60 mg IM and Toradol 60 mg IM ordered. Patient has not taken his losartan tonight and will do that as soon as he gets home. We will go ahead and give amlodipine 5 mg for elevated blood pressure. I will initiate prednisone 40 mg p.o. now and we will continue that for 6 more days. We did discuss topical agents including IcyHot with lidocaine, Aspercreme with lidocaine or generic. We also discussed OTC meds including acetaminophen and Aleve. No indication for imaging at this point. I did discuss the need to follow-up with back surgeon for further evaluation and care including physical therapy or other nonsurgical or surgical options. Amlodipine held as his blood pressure on recheck was improved in the 130s over 80s. Discharged home with return precautions. Patient verbalized understanding of instructions and agreement with plan. Departure Impression Primary Impression: Lumbar strain Qualified Codes: S39.012A - Strain of muscle, fascia and tendon of lower back, initial encounter Additional Impression: Lumbar radiculopathy Disposition: HOME, SELF-CARE Condition: Stable Departure-Patient Inst. Decision time for Depature: 21:48 Referrals: [facility] (PCP/Family) Primary Care Physician Patient Instructions: Back Muscle Strain (DC), Radiculopathy (DC) Add. Discharge Instructions: All discharge instructions reviewed with patient and/or family. Voiced understanding. You may take Aleve or the generic 1 to 2 tablets every 12 hours as needed for pain and make sure you are taking that with food or water. Minimize use to only what is needed to minimize risk of kidney injury. You may also take Tylenol/acetaminophen 1000 mg every 8 hours as needed for pain. You may use [id number] Icy Hot with lidocaine patches or cream, Aspercreme with lidocaine patches or cream, Salonpas with lidocaine patches or cream or similar items to area of concern per package directions. Take other medications as directed. Continue your home prescriptions as previously prescribed. Follow-up with your doctor for recheck and further evaluation and referral to a back surgeon for further evaluation as indicated. Return for worse pain, numbness between your legs, weakness, difficulty with walking or going to the bathroom or other concerns as needed. Scripts Prednisone (Prednisone) 20 Mg Tab 40 MG PO DAILY, #12 TAB 0 Refills Prov: FADIA LANDIS MD 06/20/22 Cyclobenzaprine HCl (Cyclobenzaprine HCl) 10 Mg Tablet 10 MG PO Q8H PRN for SPASMS, #15 TAB 0 Refills Prov: FADIA LANDIS MD 06/20/22 FADIA LANDIS MD Jun 20, 2022 21:26
[2022-06-20] MEDS ORDERED: predniSONE 20 MG TAB PO ONE (21:30)
[2022-06-20] MEDS: amLODIPine 5 MG (NORVASC) TAB PO ONE ×2 (21:43→21:49)
[2022-06-20] MEDS ORDERED: CYCL10TA25 PO (21:50)
[2022-06-20] MEDS ORDERED: PRD20T PO (21:50)
[2022-06-20 21:53] VITALS: BP 130/82
== END 2022-06-20 21:56 | disposition home or self-care (01) ==
LOC: EDUNIT# 20:55 → ER 20:58
DX: S39.012A Strain of muscle, fascia and tendon of lower back, initial encounter (principal); M54.16 Radiculopathy, lumbar region; Z87.891 Personal history of nicotine dependence; X58.XXXA Exposure to other specified factors, initial encounter
CPT/HCPCS: 99284

== ENCOUNTER 2022-06-27 00:02 | Emergency (ER) | payer OTHER ==
[~2022-06-27] VITALS: Ht 188 cm; Wt 109.0 kg
[~2022-06-27 00:02] MED LIST changes: +CYCL10TA25 PO; +PRD20T PO
[2022-06-27] MEDS ORDERED: FLUT1BLS12 (00:16)
[2022-06-27] MEDS ORDERED: LOSA50TA63 (00:16)
--- NOTE | 2022-06-27 00:18 | ED Chest Pain ---
General Chief Complaint: Chest Pain Stated Complaint: CP,BLOOD PRESSURE 174/104 History of Present Illness Date Seen by Provider: Jun 27, 2022 Time Seen by Provider: 00:18 Initial Comments 51-year-old male presents with epigastric pain going on for about 4 hours but is now pretty much gone.. Patient for [employer]. He reports that his blood pressure was a little high at home of 174/104 and was concerned and wanted to be evaluated. Patient has previously had his gallbladder out. The pain is not radiating. No diaphoresis. Allergies and Home Medications Allergies Coded Allergies: No Known Drug Allergies (Unverified , 05/24/18) Patient Home Medication List Home Medication List Reviewed: Yes Albuterol Sulfate (Ventolin Hfa) 1 Puff Puff, 2 PUFF IH Q4H PRN for SHORTNESS OF BREATH Prescribed by: CHERIE NASSAR on 09/26/182099 Azelastine HCl (Azelastine HCl) 137 Mcg/0.137 Ml [place].pump, 137 MCG NS BID Prescribed by: MOISÉS SULLIVAN on 05/20/217 Benzonatate (Tessalon Perles) 100 Mg Capsule, 200 MG PO TID Prescribed by: MOISÉS SULLIVAN on 04/11/22253 Cefuroxime Axetil (Cefuroxime) 500 Mg Tablet, 500 MG PO BID Prescribed by: MOISÉS SULLIVAN on 05/20/217 Cyclobenzaprine HCl (Cyclobenzaprine HCl) 10 Mg Tablet, 10 MG PO Q8H PRN for SPASMS Prescribed by: FADIA LANDIS on 06/20/222149 Doxycycline Hyclate (Doxycycline Hyclate) 100 Mg Tablet, 100 MG PO BID Prescribed by: MOISÉS SULLIVAN on 04/11/22 032 Fluticasone Propion/Salmeterol (Fluticasone-Salmeterol 250-50) 250 Mcg-50 Mcg/Dose Blst.w.dev, (Reported) Entered as Reported by: JAY REYES on 06/27/2215 Last Action: New Order Guaifenesin/Dextromethorphan (Mucinex Dm ER 1,200-60 mg Tab) 1,200 Mg-60 Mg Tbmp.12hr, 1 EACH PO BID Prescribed by: MOISÉS SULLIVAN on 04/11/22253 Losartan Potassium (Losartan Potassium) 50 Mg Tablet, (Reported) Entered as Reported by: JAY REYES on 06/27/22 0016 Last Action: New Order Methylprednisolone (Medrol) 4 Mg Tab.ds.pk, 4 MG PO UD Prescribed by: MOISÉS SULLIVAN on 05/20/21 0008 Methylprednisolone (Medrol) 4 Mg Tab.ds.pk, 4 MG PO UD Prescribed by: MOISÉS SULLIVAN on 04/11/22 025 Prednisone (Prednisone) 20 Mg Tab, 40 MG PO DAILY Prescribed by: FADIA LANDIS on 06/20/222149 Review of Systems Review of Systems Constitutional: No chills, No fever Respiratory: No Symptoms Reported Cardiovascular: See HPI Gastrointestinal: See HPI, Abdominal Pain (epigastric) Musculoskeletal: no symptoms reported Skin: no symptoms reported Psychiatric/Neurological: No Symptoms Reported Endocrine: No Symptoms Reported Hematologic/Lymphatic: No Symptoms Reported Past Qkwauyd-Nznmdn-Wjasrb Hx Patient Social History Tobacco Use?: No Smoking Status: Former Smoker Substance use?: No Alcohol Use?: No Pt feels they are or have been: No Immunizations Up To Date First/Initial COVID19 Vaccinat: 11/03 Second COVID19 Vaccination Paco: 12/04 Third COVID19 Vaccination Date: NONE Seasonal Allergies Seasonal Allergies: No Past Medical History Surgery/Hospitalization HX: EMPHYSEMA, FORMER SMOKER X28 YRS QUIT IN 2019, 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 oz. 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 Norm as Tested Skin: Normal Color, Warm/Dry Progress/Results/Core Measures Results/Orders Lab Results Laboratory Tests Test 06/27/22 00:30 Range/Units White Blood Count 9.4 4.3-11.0 10^3/uL Red Blood Count 4.83 4.30-5.52 10^6/uL Hemoglobin 14.3 13.3-17.7 g/dL Hematocrit 42 40-54 % Mean Corpuscular Volume 87 80-99 fL Mean Corpuscular Hemoglobin 30 25-34 pg Mean Corpuscular Hemoglobin Concent 34 32-36 g/dL Red Cell Distribution Width 13.2 10.0-14.5 % Platelet Count 237 130-400 10^3/uL Mean Platelet Volume 9.6 9.0-12.2 fL Immature Granulocyte % (Auto) 1 % Neutrophils (%) (Auto) 59 42-75 % Lymphocytes (%) (Auto) 29 12-44 % Monocytes (%) (Auto) 9 0-12 % Eosinophils (%) (Auto) 2 0-10 % Basophils (%) (Auto) 1 0-10 % Neutrophils # (Auto) 5.5 1.8-7.8 10^3/uL Lymphocytes # (Auto) 2.8 1.0-4.0 10^3/uL Monocytes # (Auto) 0.8 0.0-1.0 10^3/uL Eosinophils # (Auto) 0.2 0.0-0.3 10^3/uL Basophils # (Auto) 0.1 0.0-0.1 10^3/uL Immature Granulocyte # (Auto) 0.1 0.0-0.1 10^3/uL Sodium Level 139 135-145 MMOL/L Potassium Level 4.1 3.6-5.0 MMOL/L Chloride Level 106 98-107 MMOL/L Carbon Dioxide Level 20 L 21-32 MMOL/L Anion Gap 13 5-14 MMOL/L Blood Urea Nitrogen 13 7-18 MG/DL Creatinine 0.98 0.60-1.30 MG/DL Estimat Glomerular Filtration Rate 95 BUN/Creatinine Ratio 13 Glucose Level 110 H 70-105 MG/DL Calcium Level 9.3 8.5-10.1 MG/DL Corrected Calcium 9.3 8.5-10.1 MG/DL Magnesium Level 2.2 1.6-2.4 MG/DL Total Bilirubin 0.3 0.1-1.0 MG/DL Aspartate Amino Transf (AST/SGOT) 13 5-34 U/L Alanine Aminotransferase (ALT/SGPT) 28 0-55 U/L Alkaline Phosphatase 54 40-136 U/L Troponin I < 0.028 <0.028 NG/ML Total Protein 6.6 6.4-8.2 GM/DL Albumin 4.0 3.2-4.5 GM/DL Lipase 27 8-78 U/L My Orders Orders - GOMEZ,NANCY L DO Cbc With Automated Diff (06/27/22 00:22) Comprehensive Metabolic Panel (06/27/22 00:22) Lipase (06/27/22 00:22) Magnesium (06/27/22 00:22) Troponin I [place] (06/27/22:22) Ekg Tracing (06/27/22:22) Monitor-Rhythm Ecg Trace Only (06/27/22 00:22) Famotidine Injection (Pepcid Injection) (06/27/22 00:22) Ed Iv/Invasive Line Start (06/27/22 00:22) Lidocaine 2% Viscous 15 Ml (Xylocaine Vi (06/27/22 01:30) Antacid Suspension (Mylanta Suspension (06/27/22 01:30) Medications Given in ED Current Medications Medications Dose Ordered Sig/Vibha Route Start Time Stop Time Status Last Admin Dose Admin Al Hydrox/Mg Hydrox/Simethicone 30 ml ONCE ONCE PO 06/27/22 01:30 06/27/22 01:27 DC 06/27/22 01:25 30 ML Lidocaine HCl 15 ml ONCE ONCE PO 06/27/22 01:30 06/27/22 01:27 DC 06/27/22 01:25 15 ML Vital Signs/I&O 06/27/22 06/27/22 00:16 01:26 Temp 35.8 36.5 Pulse 76 78 Resp 12 16 B/P (MAP) 165/90 (115) 158/97 Pulse Ox 98 96 O2 Delivery Room Air Room Air Progress Progress Note : Progress Note Patient's diagnostic studies were ordered and reviewed interpreted by me. Patient had no significant findings on his labs including a negative troponin. His symptoms started greater than 4 hours ago so no further troponin would be indicated at this time. He had a negative EKG heart rate 69 normal sinus rhythm with no acute changes with a [place] 139 QTc 404. Patient reports that he has been taking a lot of ibuprofen recently and that may have irritated his stomach. He used to be on Prilosec but is not taking anymore. I suspect his symptoms are likely due to gastritis from ibuprofen or other long-term GERD. Recommend he take Pepcid along with Prilosec for at least a week while the Prilosec is taking effect. Patient stable and discharged home. Initial ECG Impression Date: Jun 27, 2022 Initial ECG Impression Time: 00:15 Initial ECG Rate: 69 Initial ECG Rhythm: Normal Sinus Initial ECG Intervals: Normal Initial ECG Impression: Normal Comment no acute st elevation or changes. Departure Impression Primary Impression: Gastroesophageal reflux disease Qualified Codes: K21.9 - Gastro-esophageal reflux disease without esophagitis Additional Impression: Gastritis Qualified Codes: K29.70 - Gastritis, unspecified, without bleeding Disposition: 01 HOME, SELF-CARE Condition: Stable Departure-Patient Inst. Referrals: [facility] (PCP[facility]Family) Primary Care Physician Patient Instructions: Gastritis (DC), Acid Reflux and GERD in Adults (DC) Add. Discharge Instructions: Please restart Prilosec as directed on package. Please add Pepcid twice daily for at least a week while Prilosec takes effect. You may use Maalox in addition to Gaviscon as needed. Please follow with your primary care provider in 7 to 10 days for recheck if symptoms or not significantly improving. All discharge instructions reviewed with patient and/or family. Voiced understanding. NANCY GOMEZ DO Jun 27, 2022 00:18
[2022-06-27] MEDS ORDERED: FAMOTIDINE 20MG/2ML IV (PEPCID) IV STA (00:22)
[2022-06-27 00:42] LABS: BASOPHILS # (AUTO) 0.1 10^3/uL (0.0-0.1); BASOPHILS % (AUTO) 1 % (0-10); EOSINOPHILS # (AUTO) 0.2 10^3/uL (0.0-0.3); EOSINOPHILS % (AUTO) 2 % (0-10); HEMATOCRIT 42 % (40-54); HEMOGLOBIN 14.3 g/dL (13.3-17.7); LYMPHOCYTES # (AUTO) 2.8 10^3/uL (1.0-4.0); LYMPHOCYTES % (AUTO) 29 % (12-44); MEAN CORPUSCULAR HEMOGLOBIN 30 pg (25-34); MEAN CORPUSCULAR HGB CONC 34 g/dL (32-36); MEAN CORPUSCULAR VOLUME 87 fL (80-99); MEAN PLATELET VOLUME 9.6 fL (9.0-12.2); MONOCYTES # (AUTO) 0.8 10^3/uL (0.0-1.0); MONOCYTES % (AUTO) 9 % (0-12); NEUTROPHILS # (AUTO) 5.5 10^3/uL (1.8-7.8); NEUTROPHILS % (AUTO) 59 % (42-75); PLATELET COUNT 237 10^3/uL (130-400); WHITE BLOOD COUNT 9.4 10^3/uL (4.3-11.0)
[2022-06-27 00:48] LABS: CHLORIDE 106 MMOL/L (98-107); POTASSIUM 4.1 MMOL/L (3.6-5.0); SODIUM 139 MMOL/L (135-145)
[2022-06-27 00:49] LABS: CALCIUM 9.3 MG/DL (8.5-10.1)
[2022-06-27 00:50] LABS: GLUCOSE 110 MG/DL (70-105)
[2022-06-27 00:51] LABS: TOTAL PROTEIN 6.6 GM/DL (6.4-8.2)
[2022-06-27 00:52] LABS: BILIRUBIN,TOTAL 0.3 MG/DL (0.1-1.0); CARBON DIOXIDE 20 MMOL/L (21-32)
[2022-06-27 00:54] LABS: ALKALINE PHOSPHATASE 54 U/L (40-136); CREATININE SERUM 0.98 MG/DL (0.60-1.30); GFR ESTIMATED 95
[2022-06-27 00:55] LABS: BUN/CREATININE RATIO 13
[2022-06-27 00:57] LABS: ALANINE AMINOTRANSFERASE 28 U/L (0-55); MAGNESIUM 2.2 MG/DL (1.6-2.4)
[2022-06-27 00:58] LABS: LIPASE 27 U/L (8-78)
[2022-06-27] MEDS ORDERED: KETOROLAC 15 MG/ML VIAL IVP ONE (01:15)
[2022-06-27 01:26] VITALS: BP 158/97
[2022-06-27] MEDS ORDERED: LIDOCAINE 2% VISCOUS 15 ML UDC PO ONE (01:30)
[2022-06-27] MEDS ORDERED: ANTACID SUSP 30 ML UDC (MYLANTA) PO ONE (01:30)
== END 2022-06-27 01:27 | disposition home or self-care (01) ==
LOC: EDUNIT# 00:02 → ER 00:06
DX: K21.9 Gastro-esophageal reflux disease without esophagitis (principal); K29.70 Gastritis, unspecified, without bleeding; I10 Essential (primary) hypertension; Z87.891 Personal history of nicotine dependence
CPT/HCPCS: 36415; 80053; 83690; 83735; 84484; 85025; 93005; 93041

== ENCOUNTER 2022-07-12 23:39 | Emergency (ER) | payer OTHER ==
[~2022-07-12 23:39] MED LIST changes: +FLUT1BLS12; +LOSA50TA63
--- NOTE | 2022-07-12 23:55 | ED Integumentary General ---
General Stated Complaint: POST OP SURGERY INCISION POPPED-BLEEDING Source: patient Exam Limitations: no limitations History of Present Illness Date Seen by Provider: Jul 12, 2022 Time Seen by Provider: 23:55 Initial Comments Patient is a 51yo with concern for wound to chest wall bleeding. He states he had a lesion removed by Dr Mcfarlane a couple of weeks ago. Was concerned that a stitch had "popped". States the blood was "pooling" on his chest. no fevers/chills/ pus. Timing/Duration: just prior to arrival Severity: moderate Location: torso (chest) Associated Symptoms: denies symptoms Allergies and Home Medications Allergies Coded Allergies: No Known Drug Allergies (Unverified , 05/24/18) Patient Home Medication List Home Medication List Reviewed: Yes Albuterol Sulfate (Ventolin Hfa) 1 Puff Puff, 2 PUFF IH Q4H PRN for SHORTNESS OF BREATH Prescribed by: CHERIE NASSAR on 09/26/182099 Azelastine HCl (Azelastine HCl) 137 Mcg/0.137 Ml [place].pump, 137 MCG NS BID Prescribed by: MOISÉS SULLIVAN on 05/20/217 Benzonatate (Tessalon Perles) 100 Mg Capsule, 200 MG PO TID Prescribed by: MOISÉS SULLIVAN on 04/11/22 0254 Cefuroxime Axetil (Cefuroxime) 500 Mg Tablet, 500 MG PO BID Prescribed by: MOISÉS SULLIVAN on 05/20/217 Cyclobenzaprine HCl (Cyclobenzaprine HCl) 10 Mg Tablet, 10 MG PO Q8H PRN for SPASMS Prescribed by: FADIA LANDIS on 06/20/22 215 Doxycycline Hyclate (Doxycycline Hyclate) 100 Mg Tablet, 100 MG PO BID Prescribed by: MOISÉS SULLIVAN on 04/11/22 0322 Fluticasone Propion/Salmeterol (Fluticasone-Salmeterol 250-50) 250 Mcg-50 Mcg/Dose Blst.w.dev, (Reported) Entered as Reported by: JAY REYES on 06/27/22 0016 Guaifenesin/Dextromethorphan (Mucinex Dm ER 1,200-60 mg Tab) 1,200 Mg-60 Mg Tbmp.12hr, 1 EACH PO BID Prescribed by: MOISÉS SULLIVAN on 04/11/22 0254 Losartan Potassium (Losartan Potassium) 50 Mg Tablet, (Reported) Entered as Reported by: JAY REYES on 06/27/22 0016 Methylprednisolone (Medrol) 4 Mg Tab.ds.pk, 4 MG PO UD Prescribed by: MOISÉS SULLIVAN on 05/20/21 0008 Methylprednisolone (Medrol) 4 Mg Tab.ds.pk, 4 MG PO UD Prescribed by: MOISÉS SULLIVAN on 04/11/22 0254 Prednisone (Prednisone) 20 Mg Tab, 40 MG PO DAILY Prescribed by: FADAI LANDIS on 06/20/222149 Review of Systems Review of Systems Constitutional: see HPI Skin: other (wound bleeding) Past Syzxwri-Ubaovj-Indzzd Hx Immunizations Up To Date First/Initial COVID19 Vaccinat: 11/03 Second COVID19 Vaccination Paco: 12/04 Third COVID19 Vaccination Date: NONE Seasonal Allergies Seasonal Allergies: No Past Medical History Surgery/Hospitalization HX: EMPHYSEMA, FORMER SMOKER X28 YRS QUIT IN 2019, 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, appy, tevin, htn Surgeries: Yes (3 BRAIN TUMORS REMOVED CHILD) Appendectomy, Gallbladder, Neurological Respiratory: Yes COPD Cardiac: No Neurological: Yes ("BRAIN TUMORS REMOVED CHILD") Genitourinary: No Gastrointestinal: No Musculoskeletal: No Endocrine: No HEENT: No Cancer: No Psychosocial: No Integumentary: Yes (STAPH ON LEFT LEG ) Blood Disorders: No Physical Exam Vital Signs Capillary Refill : General Appearance: WD/WN, no apparent distress Respiratory: no respiratory distress, no accessory muscle use Neurologic/Psychiatric: alert, normal mood/affect, oriented x 3 Skin: normal color, warm/dry, other (wound mid sternal noted to have running stitch that appears intact. no active bleeding. mild erythema around the suture line. no fluctuance. ) Departure Impression Primary Impression: Encounter for post surgical wound check Disposition: 01 HOME, SELF-CARE Condition: Stable Departure-Patient Inst. Decision time for Depature: 00:05 Referrals: [facility] (PCP/Family) Primary Care Physician RENAY MCFARLANE DO Patient Instructions: Wound Care ED Add. Discharge Instructions: Keep the wound clean, dry and covered. Direct pressure for at least 5 minutes if it is bleeding. Keep your follow up appointment with Dr Mcfarlane on the 3rd. Return to the ER for any new, concerning or emergent complaints. Copy Copies To 1: RENAY MCFARLANE KATHRYN M MD Jul 12, 2022 23:55
[2022-07-13 00:13] VITALS: BP 162/89
== END 2022-07-13 00:13 | disposition home or self-care (01) ==
LOC: EDUNIT# 23:39 → ER 23:43
DX: Z48.01 Encounter for change or removal of surgical wound dressing (principal); Z87.891 Personal history of nicotine dependence

== ENCOUNTER → 2022-07-16 | Outpatient (CLI) | payer OTHER ==
[~2022-07-16] MED LIST changes: +CEPH500T PO
== END | disposition home or self-care (01) ==
LOC: PREOP 05:40
PROVIDERS: ATTEND Surgery
DX: Z01.818 Encounter for other preprocedural examination (principal)

== ENCOUNTER 2022-07-22 23:07 | Emergency (ER) | payer OTHER ==
[~2022-07-22] VITALS: Ht 188 cm; Wt 108.0 kg
[~2022-07-22 23:07] MED LIST changes: -CEPH500T PO
[2022-07-22 23:13] VITALS: BP 186/102
[2022-07-22] MEDS ORDERED: CEPHALEXIN 250 MG (KEFLEX) CAP PO STA (23:21)
[2022-07-22] MEDS ORDERED: CEPH500T PO (23:24)
--- NOTE | 2022-07-22 23:25 | ED Integumentary General ---
General Stated Complaint: POST OP SUTURE CHECK Source: patient Exam Limitations: no limitations History of Present Illness Date Seen by Provider: July 22, 2022 Time Seen by Provider: 23:14 Initial Comments 51-year-old male presents emerged part today for a wound to his chest. He states he thinks the wound opened up. 2 weeks ago he had a cyst removed in Dr. Dominguez's office. He was most of the stitches taken out a week ago but missed his appointment. He states he was looking in the mirror tonight and noticed that the wound opened up. He denies any fevers or chills. He does have clear drainage without any purulence. He sees Dr. Dominguez in the morning. All other systems reviewed and negative except documented per HPI. Voice recognition software was used to help create this chart Allergies and Home Medications Allergies Coded Allergies: No Known Drug Allergies (Unverified , 05/24/18) Patient Home Medication List Home Medication List Reviewed: Yes Albuterol Sulfate (Ventolin Hfa) 1 Puff Puff, 2 PUFF IH Q4H PRN for SHORTNESS OF BREATH Prescribed by: CHERIE NASSAR on 09/26/182099 Azelastine HCl (Azelastine HCl) 137 Mcg/0.137 Ml [place].pump, 137 MCG NS BID Prescribed by: MOISÉS SULLIVAN on 05/20/217 Benzonatate (Tessalon Perles) 100 Mg Capsule, 200 MG PO TID Prescribed by: MOISÉS SULLIVAN on 04/11/22 0254 Cefuroxime Axetil (Cefuroxime) 500 Mg Tablet, 500 MG PO BID Prescribed by: MOISÉS SULLIVAN on 05/20/217 Cyclobenzaprine HCl (Cyclobenzaprine HCl) 10 Mg Tablet, 10 MG PO Q8H PRN for SPASMS Prescribed by: FADIA LANDIS on 06/20/22 215 Doxycycline Hyclate (Doxycycline Hyclate) 100 Mg Tablet, 100 MG PO BID Prescribed by: MOISÉS SULLIVAN on 04/11/22 0322 Fluticasone Propion/Salmeterol (Fluticasone-Salmeterol 250-50) 250 Mcg-50 Mcg/Dose Blst.w.dev, (Reported) Entered as Reported by: JAY REYES on 06/27/22 0016 Guaifenesin/Dextromethorphan (Mucinex Dm ER 1,200-60 mg Tab) 1,200 Mg-60 Mg Tbmp.12hr, 1 EACH PO BID Prescribed by: MOISÉS SULLIVAN on 04/11/22 025 Losartan Potassium (Losartan Potassium) 50 Mg Tablet, (Reported) Entered as Reported by: JAY REYES on 06/27/22 0016 Methylprednisolone (Medrol) 4 Mg Tab.ds.pk, 4 MG PO UD Prescribed by: MOISÉS SULLIVAN on 05/20/21 0008 Methylprednisolone (Medrol) 4 Mg Tab.ds.pk, 4 MG PO UD Prescribed by: MOISÉS SULLIVAN on 04/11/22 025 Prednisone (Prednisone) 20 Mg Tab, 40 MG PO DAILY Prescribed by: FADIA LANDIS on 06/20/222149 Review of Systems Review of Systems Constitutional: see HPI Past Gpuzltk-Mjguan-Amzqmb Hx Patient Social History Tobacco Use?: No Use of E-Cig and/or Vaping dev: No Substance use?: No Alcohol Use?: No Immunizations Up To Date First/Initial COVID19 Vaccinat: 11/03 Second COVID19 Vaccination Paco: 12/04 Third COVID19 Vaccination Date: 11/03 Seasonal Allergies Seasonal Allergies: No Past Medical History Surgery/Hospitalization HX: EMPHYSEMA, FORMER SMOKER X28 YRS QUIT IN 2019, 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, appy, tevin, htn Surgeries: Yes (3 BRAIN TUMORS REMOVED CHILD) Appendectomy, Gallbladder, Neurological Respiratory: Yes COPD Cardiac: No Neurological: Yes ("BRAIN TUMORS REMOVED CHILD") Genitourinary: No Gastrointestinal: No Musculoskeletal: No Endocrine: No HEENT: No Cancer: No Psychosocial: No Integumentary: Yes (STAPH ON LEFT LEG ) Blood Disorders: No Physical Exam Vital Signs Capillary Refill : General Appearance: WD/WN, no apparent distress Skin: other (Wound to his anterior chest is obviously dehisced. The opening is approximately 2 cm in diameter. There is a small amount of granulation tissue in the base of the wound. There are small amount of erythema at the borders of the wound. No purulence. The stitches are at the edges of the wound and comp letely pulled through.) Progress/Results/Core Measures Results/Orders My Orders Orders - SCOOTER ENNIS DO Cephalexin Capsule (Keflex Capsule) (07/22/22 23:21) Departure Communication (Admissions) Wound is clearly dehisced. There may be a slight amount of surrounding cellulitis. No purulence or fluctuance. There is a small amount of granulation tissue forming at the base of the wound. The stitches removed from the edges of the wound is over completely and intact. He sees Dr. Dominguez first thing in the morning. Sterile dressing is applied here with a nonadherent dressing and will defer further wound care to Dr. Dominguez. He is given p.o. antibiotics here and discharged with antibiotics. Impression Primary Impression: Wound dehiscence Disposition: HOME, SELF-CARE Condition: Stable Departure-Patient Inst. Referrals: [facility]) Primary Care Physician Patient Instructions: Wound Dehiscence Add. Discharge Instructions: Take the antibiotics as prescribed until they are gone. Follow-up with Dr. Dominguez in the morning to see what types of dressings she would like to go with going forward. This will likely have to heal by secondary intent and will take some time to do so. Scripts Cephalexin (Cephalexin) 500 Mg Tablet 500 MG PO BID for 7 Days, #14 TAB Prov: SCOOTER ENNIS DO 07/22/22 SCOOTER ENNIS DO July 22, 2022 23:25
== END 2022-07-22 23:43 | disposition home or self-care (01) ==
LOC: EDUNIT# 23:07 → ER 23:10
DX: T81.30XA Disruption of wound, unspecified, initial encounter (principal); Z87.891 Personal history of nicotine dependence
CPT/HCPCS: 99283

== ENCOUNTER 2023-02-12 20:13 | Emergency (ER) | payer OTHER ==
[~2023-02-12] VITALS: Ht 187.9 cm; Wt 112.0 kg
[~2023-02-12 20:13] MED LIST changes: +CEPH500T PO
[2023-02-12 21:01] LABS: BASOPHILS % (AUTO) 0 % (0-10); EOSINOPHILS % (AUTO) 0 % (0-10); HEMATOCRIT 43 % (40-54); HEMOGLOBIN 14.7 g/dL (13.3-17.7); LYMPHOCYTES % (AUTO) 7 % (12-44); MEAN CORPUSCULAR HEMOGLOBIN 30 pg (25-34); MEAN CORPUSCULAR HGB CONC 34 g/dL (32-36); MEAN CORPUSCULAR VOLUME 87 fL (80-99); MEAN PLATELET VOLUME 9.6 fL (9.0-12.2); MONOCYTES # (AUTO) 0.6 10^3/uL (0.0-1.0); MONOCYTES % (AUTO) 4 % (0-12); NEUTROPHILS # (AUTO) 12.1 10^3/uL (1.8-7.8); NEUTROPHILS % (AUTO) 88 % (42-75); PLATELET COUNT 327 10^3/uL (130-400); WHITE BLOOD COUNT 13.7 10^3/uL (4.3-11.0)
--- NOTE | 2023-02-12 21:02 | ED Respiratory ---
General Chief Complaint: Respiratory Problems Stated Complaint: SOB Nursing Triage Note: PT AMB TO [facility] 6 WITH CC OF COUGH, RUNNY NOSE, SOB, AND DIARRHEA SINCE January. PT REPORTED THAT HE WAS SEEN AT [facility] ON THURSDAY AND TREATED FOR BRONCHITIS. PT HAS BEEN TAKING BREATHING TREATMENTS TWICE A DAY. Source: patient History of Present Illness Date Seen by Provider: Feb 12, 2023 Time Seen by Provider: 20:37 Initial Comments PT ARRIVES VIA POV FROM HOME PT STATES HE HAS BEEN SICK SINCE 01/30/23 WITH NON -PRODUCTIVE COUGH AND CHEST CONGESTION AND CLEAR RUNNY NOSE HE STATES HE HAS WHEEZING WHEN HE LAYS DOWN AT NIGHT NO FEVER/SWEATS/CHILLS NO SWELLING IN LEGS/FEET OR PAIN IN [place] HAS BEEN SHORT OF BREATH NO NAUSEA, BUT HAS HAD DIARRHEA NO RECENT TRAVEL CHEST IS SORE FROM COUGHING, BUT DENIES "CHEST PAIN" OR PAIN WITH BREATHING HE HAS COPD AND HAS BEEN USING ALBUTEROL NEBULIZER TWICE A DAY SINCE 02/02/23 HE USES SPIRIVA AND ADVAIR DAILY HE SMOKED 1 1/2 PPD, QUIT IN 2018 HE WAS SEEN AT [facility] ON 02/09/23 FOR THIS PROBLEM AND WAS GIVEN RX FOR PREDNISONE 40 MG DAILY AND GUIAFENESIN 2400 MG DAILY. NO IMPROVEMENT. PT HAD ONE COVID VACCINE, AND HAS HAD FLU VACCINE FOR THIS SEASON [facility] Allergies and Home Medications Allergies Coded Allergies: No Known Drug Allergies (Unverified , 05/24/18) Patient Home Medication List Home Medication List Reviewed: Yes Albuterol Sulfate (Ventolin Hfa) 1 Puff Puff, 2 PUFF IH Q4H PRN for SHORTNESS OF BREATH Prescribed by: CHERIE NSASAR on 09/26/18 2100 Azelastine HCl (Azelastine HCl) 137 Mcg/0.137 Ml [place].pump, 137 MCG NS BID Prescribed by: MOISÉS SULLIVAN on 05/20/21 0008 Benzonatate (Tessalon Perles) 100 Mg Capsule, 200 MG PO TID Prescribed by: MOISÉS SULLIVAN on 04/11/22 0254 Benzonatate (Tessalon Perles) 100 Mg Capsule, 200 MG PO TID Prescribed by: MOISÉS SULLIVAN on 02/12/23 2146 Cefdinir (Cefdinir) 300 Mg Capsule, 300 MG PO BID Prescribed by: MOISÉS SULLIVAN on 02/12/232145 Cefuroxime Axetil (Cefuroxime) 500 Mg Tablet, 500 MG PO BID Prescribed by: MOISÉS SULLIVAN on 05/20/217 Cephalexin (Cephalexin) 500 Mg Tablet, 500 MG PO BID Prescribed by: SCOOTER ENNIS MD on 07/22/222323 Cyclobenzaprine HCl (Cyclobenzaprine HCl) 10 Mg Tablet, 10 MG PO Q8H PRN for SPASMS Prescribed by: FADIA LANDIS on 06/20/222149 Doxycycline Hyclate (Doxycycline Hyclate) 100 Mg Tablet, 100 MG PO BID Prescribed by: MOISÉS SULLIVAN on 04/11/22321 Fluticasone Propion/Salmeterol (Fluticasone-Salmeterol 250-50) 250 Mcg-50 M cg/Dose Blst.w.dev, (Reported) Entered as Reported by: JAY REYES on 06/27/2215 Guaifenesin/Dextromethorphan (Mucinex Dm ER 1,200-60 mg Tab) 1,200 Mg-60 Mg Tbmp.12hr, 1 EACH PO BID Prescribed by: MOISÉS SULLIVNA on 04/11/22253 Losartan Potassium (Losartan Potassium) 50 Mg Tablet, (Reported) Entered as Reported by: JAY REYES on 06/27/2215 Methylprednisolone (Medrol) 4 Mg Tab.ds.pk, 4 MG PO UD Prescribed by: MOISÉS SULLIVAN on 05/20/217 Methylprednisolone (Medrol) 4 Mg Tab.ds.pk, 4 MG PO UD Prescribed by: MOISÉS SULLIVAN on 04/11/22253 Prednisone (Prednisone) 20 Mg Tab, 40 MG PO DAILY Prescribed by: FADIA LANDIS on 06/20/222149 Promethazine/Dextromethorphan (Promethazine-Dm Syrup) 6.25 Mg-15 Mg/5 Ml Syrup, 5 ML PO Q4H Prescribed by: MOISÉS SULLIVAN on 02/12/232145 Review of Systems Review of Systems Constitutional: no symptoms reported EENTM: see HPI, nose congestion Respiratory: see HPI, cough, short of breath, wheezing Cardiovascular: see HPI Gastrointestinal: no symptoms reported Genitourinary: no symptoms reported Musculoskeletal: no symptoms reported Skin: no symptoms reported Psychiatric/Neurological: No Symptoms Reported Hematologic/Lymphatic: No Symptoms Reported Immunological/Allergic: no symptoms reported Past Cbsvwyl-Evsnxy-Wuvzab Hx Patient Social History Tobacco Use?: Yes Tobacco type used: Cigarettes Smoking Status: Former Smoker Use of E-Cig and/or Vaping dev: No Substance use?: No Alcohol Use?: No Immunizations Up To Date First/Initial COVID19 Vaccinat: 11/03 Second COVID19 Vaccination Paco: 12/04 Third COVID19 Vaccination Date: 11/03 Seasonal Allergies Seasonal Allergies: No Past Medical History Surgery/Hospitalization HX: EMPHYSEMA, FORMER SMOKER X28 YRS QUIT IN 2019, 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, appy, augusto, htn Surgeries: Yes (3 BENIGN BRAIN TUMORS REMOVED CHILD;KNEE SURGERY) Appendectomy, Gallbladder, Neurological, Orthopedic Respiratory: Yes COPD Cardiac: Yes Hypertension Neurological: Yes ("3 BENIGN BRAIN TUMORS REMOVED CHILD") Genitourinary: No Gastrointestinal: Yes (S/P AUGUSTO AND APPY) Musculoskeletal: Yes (KNEE SURGERY) Endocrine: No HEENT: No Cancer: No Psychosocial: No Integumentary: Yes (STAPH ON LEFT LEG ) Blood Disorders: No Family Medical History SOCIAL HISTORY: -SMOKED 1 1/2 PDD, QUIT 2019 -ETOH-- DENIES USE -DRUGS-- DENIES USE Physical Exam Vital Signs - First Documented 02/12/23 20:34 Temp 36.6 Pulse 104 B/P (MAP) 171/92 (118) Pulse Ox 98 O2 Delivery Room Air Capillary Refill : Height: 6'2.00" Weight: 220lbs. oz. 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, no motor/sensory deficits, alert, normal mood/affect, oriented x 3 Skin: normal color, warm/dry Progress/Results/Core Measures Suspected Sepsis SIRS Temperature: Pulse: 104 Respiratory Rate: Laboratory Tests 02/12/23 20:53: White Blood Count 13.7H Blood Pressure 171 /92 Mean: 118 Laboratory Tests 02/12/23 20:53: Creatinine 1.02, INR Comment 1.0, Platelet Count 327, Total Bilirubin 0.4 Results/Orders Lab Results Laboratory Tests Test 02/12/23 20:52 02/12/23 20:53 Range/Units Influenza Type A (RT-PCR) Not Detected Not Detecte Influenza Type B (RT-PCR) Not Detected Not Detecte SARS-CoV-2 RNA (RT-PCR) Not Detected Not Detecte White Blood Count 13.7 H 4.3-11.0 10^3/uL Red Blood Count 4.92 4.30-5.52 10^6/uL Hemoglobin 14.7 13.3-17.7 g/dL Hematocrit 43 40-54 % Mean Corpuscular Volume 87 80-99 fL Mean Corpuscular Hemoglobin 30 25-34 pg Mean Corpuscular Hemoglobin Concent 34 32-36 g/dL Red Cell Distribution Width 13.2 10.0-14.5 % Platelet Count 327 130-400 10^3/uL Mean Platelet Volume 9.6 9.0-12.2 fL Immature Granulocyte % (Auto) 0 % Neutrophils (%) (Auto) 88 H 42-75 % Lymphocytes (%) (Auto) 7 L 12-44 % Monocytes (%) (Auto) 4 0-12 % Eosinophils (%) (Auto) 0 0-10 % Basophils (%) (Auto) 0 0-10 % Neutrophils # (Auto) 12.1 H 1.8-7.8 10^3/uL Lymphocytes # (Auto) 1.0 1.0-4.0 10^3/uL Monocytes # (Auto) 0.6 0.0-1.0 10^3/uL Eosinophils # (Auto) 0.0 0.0-0.3 10^3/uL Basophils # (Auto) 0.0 0.0-0.1 10^3/uL Immature Granulocyte # (Auto) 0.1 0.0-0.1 10^3/uL Neutrophils % (Manual) 85 % Lymphocytes % (Manual) 8 % Monocytes % (Manual) 7 % Blood Morphology Comment NORMAL Erythrocyte Sedimentation Rate 8 0-30 MM/HR Prothrombin Time 13.7 12.2-14.7 SEC INR Comment 1.0 0.8-1.4 Activated Partial Thromboplast Time 30 24-35 SEC D-Dimer < 0.27 0.00-0.49 UG/ML Sodium Level 136 135-145 MMOL/L Potassium Level 4.1 3.6-5.0 MMOL/L Chloride Level 105 98-107 MMOL/L Carbon Dioxide Level 23 21-32 MMOL/L Anion Gap 8 5-14 MMOL/L Blood Urea Nitrogen 11 7-18 MG/DL Creatinine 1.02 0.60-1.30 MG/DL Estimat Glomerular Filtration Rate 90 BUN/Creatinine Ratio 11 Glucose Level 206 H 70-105 MG/DL Calcium Level 9.5 8.5-10.1 MG/DL Corrected Calcium 9.2 8.5-10.1 MG/DL Magnesium Level 2.3 1.6-2.4 MG/DL Total Bilirubin 0.4 0.1-1.0 MG/DL Aspartate Amino Transf (AST/SGOT) 19 5-34 U/L Alanine Aminotransferase (ALT/SGPT) 39 0-55 U/L Alkaline Phosphatase 74 40-136 U/L Total Creatine Kinase 54 30-200 U/L Creatine Kinase MB 0.6 <6.6 NG/ML Myoglobin 19.2 10.0-92.0 NG/ML Troponin I < 0.028 <0.028 NG/ML C-Reactive Protein High Sensitivity 0.45 0.00-0.50 MG/DL B-Type Natriuretic Peptide < 10.0 <100.0 PG/ML Total Protein 7.6 6.4-8.2 GM/DL Albumin 4.4 3.2-4.5 GM/DL Beta-Hydroxybutyrate (Chem panel) 0.08 0.00-0.27 MMOL/L My Orders Orders - MOISÉS SULLIVAN DO Ed Iv/Invasive Line Start (02/12/23 20:37) Ekg Tracing (02/12/23 20:37) O2 (02/12/23 20:37) Monitor-Rhythm Ecg Trace Only (02/12/23 20:37) Chest 1 View, Ap/Pa Only (02/12/23 20:37) Bnp [place] (02/12/23 20:37) Cbc And Automated Diff (02/12/23 20:37) Comprehensive Metabolic Panel (02/12/23 20:37) Creatine Kinase (02/12/23 20:37) Creatine Kinase Mb (02/12/23 20:37) Hs C Reactive Protein (02/12/23 20:37) Fibrin Degradation Products (02/12/23 20:37) Magnesium (02/12/23 20:37) Protime With Inr (02/12/23 20:37) Partial Thromboplastin Time (02/12/23 20:37) Erythrocyte Sedimentation Rate (02/12/23 20:37) Myoglobin Serum (02/12/23 20:37) Troponin I [place] (02/12/23 20:37) Covid 19 Inhouse Test (02/12/23 20:37) Influenza A And B By Pcr (02/12/23 20:37) Manual Differential (02/12/23 20:53) Beta Hydroxybutyrate (02/12/23 21:18) Hemoglobin A1c (02/12/23 21:18) Ekg Tracing (02/12/23 21:21) Ceftriaxone Iv/Im (Ceftriaxone Iv/Im) (02/12/23 21:45) Medications Given in ED Current Medications Medications Dose Ordered Sig/Vibha Route Start Time Stop Time Status Last Admin Dose Admin Ceftriaxone Sodium 1000 mg/ Sodium Chloride 50 ml @ 100 mls/hr ONCE ONCE IV 02/12/23 21:45 02/12/23 22:14 02/12/23 21:51 100 MLS/HR Vital Signs/I&O 02/12/23 02/12/23 20:34 22:04 Temp 36.6 Pulse 104 93 B/P (MAP) 171/92 (118) 143/88 Pulse Ox 98 O2 Delivery Room Air Capillary Refill : Blood Pressure Mean: 118 Progress Note : Progress Note VITALS ON ARRIVAL: TEMP 36.6=97.8, HR 104, BP 171/92, O2 SAT 98% ON ROOM AIR LABS: -CBC WITH WBC 13.7, OTHERWISE NORMAL ( PT ON PREDNISONE) -CMP WITH GLUCOSE 206 ( PT ON PREDNISONE ) OTHERWISE NORMAL -CRP AND SED RATE NORMAL -TROPONIN NEGATIVE -BNP NORMAL -BETA HYROXYBUTYRATE NORMAL EKG WITHOUT ACUTE CHANGES CXR NORMAL NO COUGH NO DYSPNEA NO HYPOXIA NO FEVER AT ANY TIME DURING ER STAY BP DOWN TO 143/88 AT DISMISSAL WITHOUT TREATMENT DISCUSSED TEST RESULTS, ANTICIPATED COURSE, SYMPTOMATIC TREATMENT, MEDICATIONS, NEED FOR FOLLOW UP AND RETURN PRECAUTIONS REVIEWED PRIOR RECORDS-ALL ER VISITS/OUTPATIENT PROCEDURES ECG Initial ECG Impression Date: Feb 12, 2023 Initial ECG Impression Time: 21:25 Initial ECG Rate: 88 Initial ECG Rhythm: Normal Sinus Initial ECG Intervals MI 146 QRS 97 QT/QTC 347/392 Initial ECG Impression: Nonspecific Changes Initial ECG Comparisson: No Previous ECG Available Comment INTERPRETED BY ME Diagnostic Imaging Comments CXR--PER RADIOLOGIST REPORT AT 2115 FINDINGS: Heart size and pulmonary vascularity are normal. Lungs are clear. There is no effusion or pneumothorax. IMPRESSION: No acute abnormality in the chest. Reviewed: Reviewed by Me Departure Impression Primary Impression: Bronchitis Additional Impressions: COPD (chronic obstructive pulmonary disease) HYPERGLYCEMIA--SUSPECTED DUE TO STEROID USE Disposition: HOME, SELF-CARE Condition: Stable Departure-Patient Inst. Decision time for Depature: 21:45 Referrals: GIFTY MADDEN (PCP/Family) Primary Care Physician Patient Instructions: Acute Bronchitis, Adult (DC), Chronic Obstructive Pulmonary Disease (COPD) (DC) Add. Discharge Instructions: USE YOUR ALBUTEROL NEBULIZER EVERY 4 HOURS NEEDED CONTINUE YOUR SPIRIVA AND ADVAIR DAILY PRESCRIBED CONTINUE GUIAFENESIN DAILY FINISH PREDNISONE PRESCRIBED FOLLOW UP WITH [facility] IN 4-5 DAYS IF NO BETTER All discharge instructions reviewed with patient and/or family. Voiced understanding. Scripts Promethazine/Dextromethorphan (Promethazine-Dm Syrup) 6.25 Mg-15 Mg/5 Ml Syrup 5 ML PO Q4H for Cough, #200 ML Prov: NATE,MOISÉS K DO 02/12/23 Benzonatate (TESSALON PERLES) 100 Mg Capsule 200 MG PO TID, #30 CAP Prov: NATE,MOISÉS K DO 02/12/23 Cefdinir (Cefdinir) 300 Mg Capsule 300 MG PO BID, #20 CAP Prov: NATE,MOISÉS K DO 02/12/23 NATE,MOISÉS K DO Feb 12, 2023 21:02
--- NOTE | 2023-02-12 21:11 | Diagnostic Imaging Report ---
INDICATION: Shortness of breath. EXAMINATION: Portable chest at 8:47 PM. FINDINGS: Heart size and pulmonary vascularity are normal. Lungs are clear. There is no effusion or pneumothorax. IMPRESSION: No acute abnormality in the chest. Dictated by: Dictated on workstation # [id number]
[2023-02-12 21:13] LABS: ALBUMIN 4.4 GM/DL (3.2-4.5); CHLORIDE 105 MMOL/L (98-107); POTASSIUM 4.1 MMOL/L (3.6-5.0); SODIUM 136 MMOL/L (135-145)
[2023-02-12 21:14] LABS: CALCIUM 9.5 MG/DL (8.5-10.1)
[2023-02-12 21:15] LABS: GLUCOSE 206 MG/DL (70-105); TOTAL PROTEIN 7.6 GM/DL (6.4-8.2)
[2023-02-12 21:16] LABS: CARBON DIOXIDE 23 MMOL/L (21-32)
[2023-02-12 21:17] LABS: BILIRUBIN,TOTAL 0.4 MG/DL (0.1-1.0)
[2023-02-12 21:19] LABS: ALKALINE PHOSPHATASE 74 U/L (40-136); CREATININE SERUM 1.02 MG/DL (0.60-1.30); GFR ESTIMATED 90; PROTHROMBIN TIME PATIENT 13.7 SEC (12.2-14.7)
[2023-02-12 21:20] LABS: BUN/CREATININE RATIO 11; PARTIAL THROMBOPLASTIN TIME 30 SEC (24-35)
[2023-02-12 21:22] LABS: ALANINE AMINOTRANSFERASE 39 U/L (0-55); CREATINE KINASE 54 U/L (30-200); MAGNESIUM 2.3 MG/DL (1.6-2.4)
[2023-02-12 21:25] LABS: ERYTHROCYTE SEDIMENTATION RATE 8 MM/HR (0-30)
[2023-02-12 21:29] LABS: CREATINE KINASE MB 0.6 NG/ML (<6.6)
[2023-02-12 21:36] LABS: FIBRIN DEGRADATION PRODUCTS < 0.27 UG/ML (0.00-0.49)
[2023-02-12 21:44] LABS: LYMPHOCYTES % (MANUAL) 8 %; MONOCYTES % (MANUAL) 7 %; NEUTROPHILS % (MANUAL) 85 %; RBC MORPH NORMAL
[2023-02-12] MEDS ORDERED: cefTRIAXone IV/IM 1,000 MG in NS (IVPB) 50 ML 50 ML IV ONE (21:45)
[2023-02-12] MEDS ORDERED: CEFD300C3 PO (21:46)
[2023-02-12] MEDS ORDERED: BENZ100C18 PO (21:46)
[2023-02-12] MEDS ORDERED: PROM473S15 PO (21:46)
[2023-02-12 22:04] VITALS: BP 143/88
== END 2023-02-12 22:08 | disposition home or self-care (01) ==
LOC: EDUNIT# 20:13 → ER 20:17
DX: J44.89 Other specified chronic obstructive pulmonary disease (principal); R73.9 Hyperglycemia, unspecified; Z87.891 Personal history of nicotine dependence; Z79.51 Long term (current) use of inhaled steroids; Z79.52 Long term (current) use of systemic steroids
CPT/HCPCS: 36415; 71045; 80053; 82010; 82550; 82553; 83036; 83735; 83874; 83880; 84484; 85007; 85027; 85379; 85610; 85652; 85730; 86141; 87636; 93005